=== PATIENT | female | born 1985 | race Caucasian/White ===

== ENCOUNTER → 2020-04-09 10:40 | Outpatient (BNVA) | payer MEDICAID, SELFPAY | PROVIDERS: Family Provider Nurse Practitioner; PCP Nurse Practitioner; Visit Provider Nurse Practitioner | DX: E03.9 Hypothyroidism, unspecified (principal); S93.402A Sprain of unspecified ligament of left ankle, initial encounter; Z87.891 Personal history of nicotine dependence | CPT/HCPCS: 71046; 73610; 80053; 84443 ==

== ENCOUNTER 2020-05-19 19:56 | Emergency (ER) | payer MEDICAID, SELFPAY ==
[2020-05-19 20:02] VITALS: BP 164/100; PULSE 95; RESP 18; TEMP 36.2; O2SAT 96; BMI 28.3
--- NOTE | 2020-05-19 20:11 | ED_ITS ---
HPI - Dental/Oral General: Chief complaint: Dental/Oral Stated complaint: oral pain Time Seen by Provider: 05/19/20 20:05 Source: patient Mode of arrival: ambulatory Limitations: no limitations History of Present Illness: HPI Narrative: 34-year-old female who states she has a history of poor dentition has had left lower dental pain over the last 2 to 3 days. States pain is worsened and now is a 9 out of 10. She denies any difficulty swallowing. She denies any fever. She denies any worsening or improving factors. Associated symptoms: Denies fever(s) Review of Systems Const: Denies: fever(s), chills, body aches or change in appetite Eyes: Denies: blurry vision or eye discomfort ENMT: Reports: dental pain Card: Denies: chest pain Resp: Denies: dyspnea GI: Denies: abdominal pain, nausea, vomiting or diarrhea : Denies: dysuria Musc: Denies: neck pain or back pain Skin/Breast: Denies: rash Neuro: Denies: headache(s) Psych: Denies: depression [place]/Lymph: Denies: easy bruising All/Imm: Denies: urticaria PFSH ED PFSH: Medical History (Updated 05/19/20 @ 20:10 by Sigifredo Louise MD) Adult hypothyroidism History of CVA (cerebrovascular accident) 2010 History of MRSA infection Surgical History (Updated 04/09/20 @ 10:28 by MAXIMILIANO Mock) History of hemilaminectomy History of tubal ligation Family History Other Stroke Denies family history of Bleeding disorder Social History Smoking and tobacco status: current every day smoker Second hand smoke exposure: Yes Smoking risk assessment/counseling performed?: Yes Alcohol intake: unknown Desire information about alcohol rehabilitation?: No Counseling given: No Desire information about substance/drug rehabilitation?: No Counseling given: No Adopted: No Caregiver/support person: No Lives independently: Yes Household members: children and friend(s) Housing: House Marital status: Single Number of children: 6 service: No Current occupational status: unemployed Pets and animals: Yes Pets & animals: cat(s) History of recent travel: No Current gender identity: Female Physical Exam Const: COMMON NORMALS: no acute distress, patient oriented x3 and healthy appearing HENMT: COMMON NORMALS: normocephalic and atraumatic HEAD & SCALP: normocephalic and atraumatic OTHER: Very poor dentition with multiple cavities. Inflammation to left lower molar with no abscess no trismus Eye: COMMON NORMALS: Equal, round and reactive pupils present and EOMs intact bilaterally PUPIL: Yes Equal, round and reactive pupils present Neck/C-Spine: COMMON NORMALS: full ROM and supple Chest: COMMONS NORMALS: normal inspection of the chest and normal palpation of entire chest wall Resp: COMMON NORMALS: normal respiratory effort, No retractions, No use of accessory muscles and clear to auscultation bilaterally AUSCULTATION: clear to auscultation bilaterally Cardio: COMMON NORMALS: regular rate, regular rhythm and No murmurs present (Cardio) RATE: regular rate RHYTHM: regular rhythm GI: COMMON NORMALS: Normal to inspection, nondistended, normoactive bowel sounds present, Soft to palpation, non-tender and no masses PALPATION: Yes Soft to palpation Extremity: COMMON NORMALS: normal to inspection and full ROM Neuro: COMMON NORMALS: patient oriented x3, moves all extremities and no focal motor deficits Psych: COMMON NORMALS: mental status grossly normal, Normal thought process present and cooperative THOUGHT PROCESS: Normal thought process present Skin: COMMON NORMALS: no rashes or lesions noted and no wounds GENERAL SKIN EXAM: no rashes or lesions noted Course Vital Signs: Vital signs: Vital Signs Temperature 97.2 F L 05/19/20 20:02 Pulse Rate 95 05/19/20 20:02 Respiratory Rate 18 05/19/20 20:02 Blood Pressure 164/100 05/19/20 20:02 Pulse Oximetry 96 05/19/20 20:02 MDM - Dental/Oral MDM Narrative: Medical decision making narrative: Patient presents here with dental pain. Patient has no signs of abscess or trismus. She is stable for discharge and return if worsening. Understand agree to plan. We will place her on pain meds along with antibiotics. Discharge Plan Discharge Patient Disposition: Home Clinical Impression: Dental caries Condition: Stable Prescriptions: New [place] 5-325 mg tablet 1 tab PO Q6H PRN (Reason: pain) Qty: 14 RF: 0 Zofran 4 mg tablet 4 mg PO QID PRN (Reason: nausea and vomiting) Qty: 14 RF: 0 Keflex 500 mg capsule 500 mg PO Q6H 7 Days Qty: 28 RF: 0 No Action levothyroxine 25 mcg tablet 25 mcg PO DAILY Qty: 30 RF: 5 albuterol sulfate [Proventil HFA] 90 mcg/actuation HFA aerosol inhaler 2 puff INHALATION Q6H PRN (Reason: shortness of breath or wheezing) Qty: 18 RF: 5 cephalexin 500 mg capsule 500 mg PO TID 7 Days Qty: 21 RF: 0 Discharge Orders: Discharge Order (Routine); Ordered 05/19/20 Ordered By: Sigifredo Louise Referrals: Akin Brandon, DIRECTOR OF NEUROLOGY-C [Primary Care Provider] - Discharge Diet: Advance as tolerated Discharge Activity: Resume usual activity Patient Instructions: Dental Caries (ED) Coding Level of Care Code ED Supervisor Grading for Concetta Woodruff
[2020-05-19] MEDS: HYDROcodone-acetaminophen 5-325 mg Tablet 1 TAB PO (20:21)
--- NOTE | 2020-05-20 12:48 | DCPLANNER ---
ict business development manager had message to speak with patient about a dentist. ict business development manager called patient, and told patient that the only dentist around here that takes adult medicaid is in [facility]. Patient stated that she knew the dentist, but that medicaid will not pay for dentures and she can not go to the dentist.
== END 2020-05-19 20:24 | disposition home or self-care (01) ==
PROVIDERS: Emergency Provider Emergency Medicine; PCP Nurse Practitioner
DX: K02.9 Dental caries, unspecified (principal); Z86.73 Personal history of transient ischemic attack (TIA), and cerebral infarction without residual deficits; F17.210 Nicotine dependence, cigarettes, uncomplicated
CPT/HCPCS: 12345; 99281; 99282

== ENCOUNTER 2020-06-02 20:47 | Emergency (ER) | payer MEDICAID, SELFPAY ==
--- NOTE | 2020-06-02 20:48 | XR_ITS ---
WS: [id number] XR KUB [id number] REASON FOR EXAM: constipation FINDINGS: No free air or retroperitoneal air. Bowel gas pattern demonstrates a large amount of fecal material throughout the colon and into the rec evelyn vault. No findings of bowel obstruction. No mass or significant calcification identified. XR/XR KUB [id number] IMPRESSION: Findings compatible with constipation.
[2020-06-02 20:57] VITALS: BP 164/110; PULSE 105; RESP 18; TEMP 36.8; O2SAT 96; BMI 28.3
--- NOTE | 2020-06-02 22:50 | W.ED.ABDPA2 ---
HPI - Abdominal Pain General: Chief Complaint: Abdominal Pain Stated Complaint: constipation x 5 days Time Seen by Provider: 06/02/20 22:35 Source: patient Mode of arrival: ambulatory Limitations: no limitations History of Present Illness: HPI narrative: 35-year-old female who states she has been taking [place] for dental pain has become constipated. She has not had a bowel movement 5 days. She has had abdominal cramping she rates a 3 out of 10. She has not taken any stool softeners or laxatives. She denies any worsening or improving factors. She denies any vomiting. MD elicited complaint: abdominal pain Pertinent past history: constipation Associated Symptoms: Reports constipation; Denies chills, dysuria and fever(s) Review of Systems Const: Denies: fever(s), chills, body aches or change in appetite Eyes: Denies: blurry vision or eye discomfort ENMT: Denies: throat pain or dental pain Card: Denies: chest pain Resp: Denies: dyspnea GI: Reports: abdominal pain and constipation : Denies: dysuria Musc: Denies: neck pain or back pain Skin/Breast: Denies: rash Neuro: Denies: headache(s) Psych: Denies: depression [place]/Lymph: Denies: easy bruising All/Imm: Denies: urticaria PFSH ED PFSH: Medical History (Updated 06/02/20 @ 22:51 by Sigifredo Louise MD) Adult hypothyroidism History of CVA (cerebrovascular accident) 2009 History of MRSA infection Surgical History (Updated 04/09/20 @ 10:28 by MAXIMILIANO Mock) History of hemilaminectomy History of tubal ligation Family History Other Stroke Denies family history of Bleeding disorder Social History Smoking and tobacco status: current every day smoker Second hand smoke exposure: Yes Smoking risk assessment/counseling performed?: Yes Alcohol intake: unknown Desire information about alcohol rehabilitation?: No Counseling given: No Desire information about substance/drug rehabilitation?: No Counseling given: No Adopted: No Caregiver/support person: No Lives independently: Yes Household members: children and friend(s) Housing: House Marital status: Single Number of children: 6 service: No Current occupational status: unemployed Pets and animals: Yes Pets & animals: cat(s) History of recent travel: No Current gender identity: Female Physical Exam Const: COMMON NORMALS: no acute distress, patient oriented x3 and healthy appearing HENMT: COMMON NORMALS: normocephalic and atraumatic HEAD & SCALP: normocephalic and atraumatic Eye: COMMON NORMALS: Equal, round and reactive pupils present and EOMs intact bilaterally PUPIL: Yes Equal, round and reactive pupils present Neck/C-Spine: COMMON NORMALS: full ROM and supple Chest: COMMONS NORMALS: normal inspection of the chest and normal palpation of entire chest wall Resp: COMMON NORMALS: normal respiratory effort, No retractions, No use of accessory muscles and clear to auscultation bilaterally AUSCULTATION: clear to auscultation bilaterally Cardio: COMMON NORMALS: regular rate, regular rhythm and No murmurs present (Cardio) RATE: regular rate RHYTHM: regular rhythm GI: COMMON NORMALS: Normal to inspection, nondistended, normoactive bowel sounds present, Soft to palpation, non-tender and no masses PALPATION: Yes Soft to palpation Extremity: COMMON NORMALS: normal to inspection and full ROM Neuro: COMMON NORMALS: patient oriented x3, moves all extremities and no focal motor deficits Psych: COMMON NORMALS: mental status grossly normal, Normal thought process present and cooperative THOUGHT PROCESS: Normal thought process present Skin: COMMON NORMALS: no rashes or lesions noted and no wounds GENERAL SKIN EXAM: no rashes or lesions noted Course Vital Signs: Vital signs: Vital Signs Temperature 98.3 F 06/02/20 20:57 Pulse Rate 105 H 06/02/20 20:57 Respiratory Rate 18 06/02/20 20:57 Blood Pressure 164/110 06/02/20 20:57 Pulse Oximetry 96 06/02/20 20:57 MDM - Abdominal Pain MDM Narrative: Medical decision making narrative: Patient presents here with abdominal pain from constipation with opioid use. Will give patient lactulose and MiraLAX here and discharge her on MiraLAX. She has no signs of obstruction. Patient's exam here is benign otherwise. She is stable for discharge and return if worsening. Discharge Plan Discharge Patient Disposition: Home Clinical Impression: Constipation Qualifiers: Constipation type: unspecified constipation type Qualified Code(s): K59.00 - Constipation, unspecified Condition: Stable Prescriptions: New Miralax 17 gram/dose powder 17 gm PO DAILY PRN (Reason: constipation) Qty: 119 RF: 0 No Action levothyroxine 25 mcg tablet 25 mcg PO DAILY Qty: 30 RF: 5 albuterol sulfate [Proventil HFA] 90 mcg/actuation HFA aerosol inhaler 2 puff INHALATION Q6H PRN (Reason: shortness of breath or wheezing) Qty: 18 RF: 5 cephalexin 500 mg capsule 500 mg PO TID 7 Days Qty: 21 RF: 0 [place] 5-325 mg tablet 1 tab PO Q6H PRN (Reason: pain) Qty: 14 RF: 0 Zofran 4 mg tablet 4 mg PO QID PRN (Reason: nausea and vomiting) Qty: 14 RF: 0 Discharge Orders: Discharge Order (Routine); Ordered 06/02/20 Ordered By: Sigifredo Louise Referrals: Akin Brandon, STARTING SHEET TANK OPERATOR-C [Primary Care Provider] - 1-3 days Discharge Diet: Advance as tolerated Discharge Activity: Resume usual activity Patient Instructions: Constipation (ED) Coding Level of Care Code ED Director Of Events for Concetta Woodruff
[2020-06-02] MEDS: polyethylene glycol 3350 Pkt 17 gm PO (23:11)
[2020-06-02] MEDS: lactulose oral liq 20 gm/30 mL UDC 30 GM PO (23:11)
[2020-06-02 23:13] VITALS: PULSE 72; RESP 18; O2SAT 98
== END 2020-06-02 23:14 | disposition home or self-care (01) ==
PROVIDERS: Emergency Provider Emergency Medicine; PCP Nurse Practitioner
DX: K59.00 Constipation, unspecified (principal); Z86.73 Personal history of transient ischemic attack (TIA), and cerebral infarction without residual deficits; F17.210 Nicotine dependence, cigarettes, uncomplicated
CPT/HCPCS: 12345; 74018; 99281; 99282; 99283

== ENCOUNTER 2020-06-03 01:40 | Inpatient (IN) | payer MEDICAID, SELFPAY ==
[2020-06-03] VITALS (11 sets, daily range): BP systolic 140–170; BP diastolic 90–116; PULSE 86–101; RESP 18–30; TEMP 36.2–37.1; O2SAT 91–99; BMI 28.3
--- NOTE | 2020-06-03 01:41 | CTR_ITS ---
PROCEDURE INFORMATION: Exam: CT Abdomen And Pelvis With Contrast Exam date and time: 06/03/2020 1:45 AM Age: 35 years old Clinical indication: Constipation and nausea and vomiting; Abdominal pain; Generalized; Additional info: Abd pain TECHNIQUE: Imaging protocol: Computed tomography of the abdomen and pelvis with intravenous contrast. Radiation optimization: All CT scans at this facility use at least one of these dose optimization techniques: automated exposure control; mA and/or kV adjustment per patient size (includes targeted exams where dose is matched to clinical indication); or iterative reconstruction. Contrast material: OMNI 300; Contrast volume: 95 ml; Contrast route: INTRAVENOUS (IV); COMPARISON: CT abdomen pelvis wo con [id number] 06/14/2017 1:27 PM RADIATION DOSE METRICS: Total DLP (mGy-cm): 1122.46 FINDINGS: Mediastinal space: A small hiatal hernia is present. Liver: Mild hepatic steatosis is noted. Gallbladder and bile ducts: Normal. No calcified stones. No ductal dilation. Pancreas: Normal. No ductal dilation. Spleen: Normal. No splenomegaly. Adrenals: Normal. No mass. Kidneys and ureters: Subcentimeter round hypodense lesions are present in both kidneys that are too small to characterize, but are likely benign. Stomach and bowel: Wall thickening is observed in the sigmoid colon. Several sigmoid colon diverticular are also noted. The colon is mildly distended proximal to the sigmoid colon with stool and air. The small bowel is normal in caliber. Appendix: The appendix is normal. Intraperitoneal space: Unremarkable. No free air. No significant fluid collection. Vasculature: Unremarkable. No abdominal aortic aneurysm. Lymph nodes: Unremarkable. No enlarged lymph nodes. Urinary bladder: Unremarkable as visualized. Reproductive: The uterus and ovaries appear normal. Bones/joints: Unremarkable. No acute fracture. Soft tissues: Unremarkable. CT/CT abdomen pelvis w con* [id number] IMPRESSION: 1. Sigmoid colon colitis versus diverticulitis, and associated constipation. 2. Mild hepatic steatosis. 3. Small hiatal hernia. COMMENTS: Consistent with the [employer]'s Incidental Findings Committee white paper (J Am Maria Esther Radiol 2018): Any incidental renal lesion less than 1 cm or classified as too small to characterize, or any incidental cystic renal lesion characterized as simple-appearing, is likely benign. No follow-up imaging is recommended for these lesions per consensus recommendations based on imaging criteria. Radiation Dose CTDIVOL = (mGy): DLP = 1122.46 (mGy-cm)
--- NOTE | 2020-06-03 01:44 | W.ED.ABDPA2 ---
HPI - Abdominal Pain General: Chief Complaint: Abdominal Pain Stated Complaint: puking blood Time Seen by Provider: 06/03/20 01:40 Source: patient Mode of arrival: ambulatory Limitations: no limitations History of Present Illness: HPI narrative: 35-year-old female was seen here earlier tonight for constipation. She has been on pain meds and has not a bowel movement 5 days. She was given lactulose and states she went home and started throwing up. States she threw up a small amount of blood. She she got diffuse abdominal pain she rates an 8 out of 10. She denies any worsening or improving factors. Denies any fevers. Associated Symptoms: Reports constipation, nausea and vomiting; Denies chills, dysuria and fever(s) Review of Systems Const: Denies: fever(s), chills, body aches or change in appetite Eyes: Denies: blurry vision or eye discomfort ENMT: Denies: throat pain or dental pain Card: Denies: chest pain Resp: Denies: dyspnea GI: Reports: abdominal pain, nausea, vomiting and constipation : Denies: dysuria Musc: Denies: neck pain or back pain Skin/Breast: Denies: rash Neuro: Denies: headache(s) Psych: Denies: depression [place]/Lymph: Denies: easy bruising All/Imm: Denies: urticaria PFSH ED PFSH: Medical History Adult hypothyroidism History of CVA (cerebrovascular accident) 2009 History of MRSA infection Surgical History History of hemilaminectomy History of tubal ligation Family History Other Stroke Denies family history of Bleeding disorder Social History Smoking and tobacco status: current every day smoker Second hand smoke exposure: Yes Smoking risk assessment/counseling performed?: Yes Alcohol intake: unknown Desire information about alcohol rehabilitation?: No Counseling given: No Desire information about substance/drug rehabilitation?: No Counseling given: No Adopted: No Caregiver/support person: No Lives independently: Yes Household members: children and friend(s) Housing: House Marital status: Single Number of children: 6 service: No Current occupational status: unemployed Pets and animals: Yes Pets & animals: cat(s) History of recent travel: No Current gender identity: Female Physical Exam Const: COMMON NORMALS: no acute distress, patient oriented x3 and healthy appearing HENMT: COMMON NORMALS: normocephalic and atraumatic HEAD & SCALP: normocephalic and atraumatic Eye: COMMON NORMALS: Equal, round and reactive pupils present and EOMs intact bilaterally PUPIL: Yes Equal, round and reactive pupils present Neck/C-Spine: COMMON NORMALS: full ROM and supple Chest: COMMONS NORMALS: normal inspection of the chest and normal palpation of entire chest wall Resp: COMMON NORMALS: normal respiratory effort, No retractions, No use of accessory muscles and clear to auscultation bilaterally AUSCULTATION: clear to auscultation bilaterally Cardio: COMMON NORMALS: regular rate, regular rhythm and No murmurs present (Cardio) RATE: regular rate RHYTHM: regular rhythm GI: COMMON NORMALS: Soft to palpation and no masses PALPATION: Yes Soft to palpation OTHER: distended with diffuse tenderness Extremity: COMMON NORMALS: normal to inspection and full ROM Neuro: COMMON NORMALS: patient oriented x3, moves all extremities and no focal motor deficits Psych: COMMON NORMALS: mental status grossly normal, Normal thought process present and cooperative THOUGHT PROCESS: Normal thought process present Skin: COMMON NORMALS: no rashes or lesions noted and no wounds GENERAL SKIN EXAM: no rashes or lesions noted Course Vital Signs: Vital signs: Vital Signs Temperature 97.1 F L 06/03/20 01:43 Pulse Rate 101 H 06/03/20 02:30 Respiratory Rate 30 H 06/03/20 02:30 Blood Pressure 166/116 06/03/20 02:30 Pulse Oximetry 91 06/03/20 02:30 MDM - Abdominal Pain MDM Narrative: Medical decision making narrative: Calli presents here with constipation. CT scan shows possible diverticulitis. Patient still has not had a bowel movement and has vomiting. Spoke to hospitalist will admit due to her diverticulitis and constipation. Patient has been stable down here. Lab Data: Labs: Lab Results 06/03/20 06/03/20 06/03/20 Range/Units 01:49 01:49 01:49 WBC 22.8 H (4.0-10.0) 10^3/ uL RBC 5.76 H (4.1-5.3) 10^6/u L Hgb 17.5 H (11.5-15.3) g/dL Hct 52.0 H (37.0-47.0) % MCV 90.3 (81-99) fL MCH 30.4 (28.0-34.0) pg MCHC 33.7 (30.0-36.0) g/dL RDW 13.3 (12.1-15.1) % Plt Count 398 (130-400) 10^3/c mm MPV 8.6 (7.4-10.4) fL Neut % (Auto) 60.1 % Lymph % (Auto) 30.1 % [place] % (Auto) 7.7 % Eos % (Auto) 1.1 % Baso % (Auto) 0.4 % Neut # (Auto) 13.71 H (1.8-7.7) 10^3/u L Lymph # (Auto) 6.9 H (0.8-4.8) 10^3/u L [place] # (Auto) 1.8 H (0.2-0.9) 10^3/u L Eos # (Auto) 0.2 (0.0-0.8) 10^3/u L Baso # (Auto) 0.1 (0.0-0.1) 10^3/u L Nucleated RBC % (a uto) 0 % Nucleated RBCs # 0.0 /100WBC Sodium 134 L (136-145) mmol/L Potassium 3.9 (3.5-5.1) mmol/L Chloride 100 (98-107) mmol/L Carbon Dioxide 22 (22-29) mmol/L Anion Gap 15.9 (5-19) BUN 12 (6-20) mg/dL Creatinine 0.6 (0.5-0.9) mg/dL GFR Calculation 113.1 (90-130) mL/min Glucose 112 (65-115) mg/dL Calculated Osmolal ity 279 L (285-295) mOsm/k g Calcium 9.8 (8.5-10.5) mg/dL Total Bilirubin 0.4 (0.15-1.2) mg/dL AST 17 (0-32) U/L ALT 21 (0-33) U/L Alkaline Phosphata se 85 (35-105) IU/L Total Protein 7.9 (6.6-8.7) g/dL Albumin 4.5 (3.5-5.2) g/dL Globulin 3.4 (1.3-4.6) g/dL Lipase 35 (13-60) U/L HCG, Qual Negative (Negative) Imaging Data ^: CT Abd/Pel: Radiologist's impression: [address] [address] [address] Scan Report Signed Patient: Elena Cano Unit #: [id number] : 1985 Age/Sex: 35 / F ADM Date: 06/03/20 Loc: ER Room/Bed: Attending Dr: Ordering Provider/Ordering MD: Sigifredo Louise MD Date of Service: 06/03/20 Procedure(s): CT abdomen pelvis w con* [id number] Accession Number(s): [id number] Report Number: [id number] PROCEDURE INFORMATION: Exam: CT Abdomen And Pelvis With Contrast Exam date and time: 06/03/2020 1:45 AM Age: 35 years old Clinical indication: Constipation and nausea and vomiting; Abdominal pain; Generalized; Additional info: Abd pain TECHNIQUE: Imaging protocol: Computed tomography of the abdomen and pelvis with intravenous contrast. Radiation optimization: All CT scans at this facility use at least one of these dose optimization techniques: automated exposure control; mA and/or kV adjustment per patient size (includes targeted exams where dose is matched to clinical indication); or iterative reconstruction. Contrast material: OMNI 300; Contrast volume: 95 ml; Contrast route: INTRAVENOUS (IV); COMPARISON: CT abdomen pelvis wo con [id number] 06/14/2017 1:27 PM RADIATION DOSE METRICS: Total DLP (mGy-cm): 1122.46 FINDINGS: Mediastinal space: A small hiatal hernia is present. Liver: Mild hepatic steatosis is noted. Gallbladder and bile ducts: Normal. No calcified stones. No ductal dilation. Pancreas: Normal. No ductal dilation. Spleen: Normal. No splenomegaly. Adrenals: Normal. No mass. Kidneys and ureters: Subcentimeter round hypodense lesions are present in both kidneys that are too small to characterize, but are likely benign. Stomach and bowel: Wall thickening is observed in the sigmoid colon. Several sigmoid colon diverticular are also noted. The colon is mildly distended proximal to the sigmoid colon with stool and air. The small bowel is normal in caliber. Appendix: The appendix is normal. Intraperitoneal space: Unremarkable. No free air. No significant fluid collection. Vasculature: Unremarkable. No abdominal aortic aneurysm. Lymph nodes: Unremarkable. No enlarged lymph nodes. Urinary bladder: Unremarkable as visualized. Reproductive: The uterus and ovaries appear normal. Bones/joints: Unremarkable. No acute fracture. Soft tissues: Unremarkable. CT/CT abdomen pelvis w con* [id number] IMPRESSION: 1. Sigmoid colon colitis versus diverticulitis, and associated constipation. 2. Mild hepatic steatosis. 3. Small hiatal hernia. Discharge Plan Discharge Patient Disposition: Admitted As Inpatient Clinical Impression: Diverticulitis, Constipation, Vomiting Condition: Stable Referrals: Akin Brandon DATABASE ADMINISTRATOR-C [Primary Care Provider] - Coding Level of Care Code ED Veneer Production Machine Operator for g Fwd Exam Comprehensive
[2020-06-03] MEDS: ondansetron 2 mg/ML SDV 2 mL 4 MG IVP ×4 (01:49→20:54)
[2020-06-03] MEDS: LORazepam 2 mg/mL INJ 1 mL 1 MG IVP (01:51)
[2020-06-03 01:54] LABS: Basophils # 0.1 10^3/uL (0.0-0.1); Basophils % 0.4 %; Eosinophils # 0.2 10^3/uL (0.0-0.8); Eosinophils % 1.1 %; Hemoglobin 17.5 g/dL (11.5-15.3); Lymphocytes # 6.9 10^3/uL (0.8-4.8); Lymphocytes % 30.1 %; Mean Corpuscular HGB Conc 33.7 g/dL (30.0-36.0); Mean Corpuscular Hemoglobin 30.4 pg (28.0-34.0); Mean Corpuscular Volume 90.3 fL (81-99); Mean Platelet Volume 8.6 fL (7.4-10.4); Monocytes # 1.8 10^3/uL (0.2-0.9); Monocytes % 7.7 %; Neutrophils # 13.71 10^3/uL (1.8-7.7); Neutrophils % 60.1 %; Nucleated Red Blood Cells % 0 %; Platelet Count 398 10^3/cmm (130-400); Red Blood Count 5.76 10^6/uL (4.1-5.3); Red Cell Distribution Width 13.3 % (12.1-15.1); White Blood Count 22.8 10^3/uL (4.0-10.0)
[2020-06-03] MEDS: iohexol 300 mg/mL 100 mL Btl IV (02:12)
[2020-06-03 02:13] LABS: HCG, Serum Qual Negative (Negative)
[2020-06-03 02:19] LABS: Alanine Aminotransferase 21 U/L (0-33); Albumin Level 4.5 g/dL (3.5-5.2); Alkaline Phosphatase 85 IU/L (35-105); Anion Gap 15.9 (5-19); Aspartate Amino Transferase 17 U/L (0-32); Blood Urea Nitrogen 12 mg/dL (6-20); Calcium 9.8 mg/dL (8.5-10.5); Carbon Dioxide 22 mmol/L (22-29); Chloride 100 mmol/L (98-107); Globulin 3.4 g/dL (1.3-4.6); Glomerular Filtration Rate 113.1 mL/min (90-130); Glucose 112 mg/dL (65-115); Lipase 35 U/L (13-60); Osmolality Calculated 279 mOsm/kg (285-295); Potassium 3.9 mmol/L (3.5-5.1); Sodium 134 mmol/L (136-145); Total Bilirubin 0.4 mg/dL (0.15-1.2); Total Protein 7.9 g/dL (6.6-8.7)
[2020-06-03] MEDS: metoclopramide 5 mg/mL SDV 2 mL 10 MG IVP (02:22)
[2020-06-03] MEDS: diphenhydrAMINE 50 mg/mL SDV 1mL IVP (02:24)
[2020-06-03] MEDS: sodium chloride 0.9% 1,000 ML 999 ML IV (02:27)
[2020-06-03] MEDS: levofloxacin-dextrose 5 % 750 MG/150 ML PREMIX 100 MG IV (03:32)
--- NOTE | 2020-06-03 03:50 | P.HP_ITS ---
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 Patient states that she has chronic constipation, she has a bowel movement every few days, but for the last 5 days she has has not had a bowel movement. Starting today she had worsening abdominal pain, abdominal distention, developed violent retching, nausea, vomiting, with minimal hematemesis. Denies fevers, chills, recent travel, exposure to COVID-19. Denies a history of diverticulitis. Denies being , had a thermal ablation 8 years ago, has not had a period since then. Denies IV drug use, yari es marijuana use. Only medication she uses is levothyroxine for hypothyroidism. She did admit to using 2 tablets of ibuprofen for pain. Denies alcohol use. Is a smoker. Abdominal pain is diffuse, is tender all over, prefers to lie on her side due to abdominal pain. Denies any dysuria. Denies any hematuria. Denies any flank pain. Denies any lower pelvic pain. Has not been sexually active in the last 8 years. Denies any history of bloody or black stools. Denies any weight loss. Denies any personal or family history of colon cancer. Denies any personal family history of ulcerative colitis or Crohn's disease. Review of Systems Const: Denies: fever(s), chills, fatigue or malaise Eyes: Denies: change in vision or blurry vision ENMT: Denies: nasal congestion Resp: Denies: dyspnea, productive cough, non-productive cough or wheezing GI: Reports: abdominal pain, nausea, vomiting, hematemesis and constipation; Denies: coffee ground emesis, diarrhea, hematochezia or melena : Denies: flank pain, dysuria or urinary frequency Musc: Denies: neck pain or back pain Skin/Breast: Denies: rash Neuro: Denies: headache(s), dizziness or vertigo Psych: Denies: anxiety or depression Endo: Denies: polyuria or polydipsia Medications/Allergies Home Medications Medication Instructions Recorded Confirmed Last Taken Type cephalexin 500 mg capsule 500 mg PO TID 7 Days #21 cap 04/04/20 04/09/20 Unknown Rx albuterol sulfate 90 mcg/actuation 2 puff INHALATION Q6H PRN #18 gm 04/09/20 04/09/20 Unknown Rx aerosol inhaler levothyroxine 25 mcg tablet 25 mcg PO DAILY #30 tab 04/09/20 04/09/20 Unknown Rx hydrocodone-acetaminophen [[place]] 1 tab PO Q6H PRN #14 tab 05/19/20 Unknown Rx ondansetron HCl [Zofran] 4 mg PO QID PRN #14 tab 05/19/20 Unknown Rx polyethylene glycol 3350 [Miralax] 17 gm PO DAILY PRN #119 gm 06/02/20 Unknown Rx Allergies Allergy/AdvReac Type Severity Reaction Status Date / Time chlorpromazine Allergy Unknown Unknown Verified 11/20/19 12:10 [From Thorazine] metronidazole [From Flagyl] Allergy Unknown hives Verified 11/20/19 12:10 Sulfa (Sulfonamide Allergy Unknown Verified 05/19/20 20:01 Antibiotics) sulfa drugs Allergy Unknown Unknown Uncoded 11/20/19 12:08 PFSH Acute PFSH: Medical History Adult hypothyroidism History of CVA (cerebrovascular accident) 2010 History of MRSA infection Surgical History History of hemilaminectomy History of tubal ligation Family History Other Stroke Denies family history of Bleeding disorder Social History Smoking and tobacco status: current every day smoker Second hand smoke exposure: Yes Smoking risk assessment/counseling performed?: Yes Alcohol intake: unknown Desire information about alcohol rehabilitation?: No Counseling given: No Desire information about substance/drug rehabilitation?: No Counseling given: No Adopted: No Caregiver/support person: No Lives independently: Yes Household members: children and friend(s) Housing: House Marital status: Single Number of children: 6 service: No Current occupational status: unemployed Pets and animals: Yes Pets & animals: cat(s) History of recent travel: No Current gender identity: Female Vitals/I&O/Wt Last Vital Signs Temp 97.1 F L 06/03/20 01:43 Pulse 86 06/03/20 03:29 Resp 18 06/03/20 03:29 BP 166/116 06/03/20 02:30 Pulse Ox 99 06/03/20 03:29 06/02/20 06/02/20 06/03/20 14:59 22:59 06:59 Intake Total 1000 / 1000 Balance 1000 / 1000 Weight last 48 hrs Weight 72.575 kg Physical Exam Const: COMMON NORMALS: no acute distress and patient oriented x3 GENERAL APPEARANCE: cooperative and comfortable HENMT: COMMON NORMALS: normocephalic HEAD & SCALP: normocephalic Eye: OTHER: Has mucoid eye discharge Neck/C-Spine: COMMON NORMALS: full ROM, no lymphadenopathy, no JVD and Thyroid normal THYROID: Thyroid normal Lymph: LYMPHATIC: no lymphadenopathy noted Resp: COMMON NORMALS: normal respiratory effort, No retractions, No use of accessory muscles and clear to auscultation bilaterally AUSCULTATION: clear to auscultation bilaterally Cardio: COMMON NORMALS: no JVD, regular rate, regular rhythm, S1 normal heart sound present, S2 normal heart sound present, No gallops present (Cardio), No clicks present (Cardio) and No murmurs present (Cardio) RATE: regular rate RHYTHM: regular rhythm HEART SOUNDS: S1 normal heart sound present and S2 normal heart sound present GI: COMMON NORMALS: Normal to inspection, nondistended, normoactive bowel sounds present, Soft to palpation, non-tender and No hepatosplenomegaly present INSPECTION: Yes normal to inspection AUSCULTATION: Yes Hypoactive bowel sounds present PALPATION: Yes Tenderness to palpation present (GI) Details: LLQ, RLQ, LUQ and RUQ, No Guarding due to palpation present (GI), No Rigid due to palpation and No Ascites present PERCUSSION: tympanic to percussion Extremity: COMMON NORMALS: normal to inspection, full ROM and no pedal edema Neuro: COMMON NORMALS: patient oriented x3, CN's II-XII intact bilaterally, moves all extremities and no focal motor deficits Psych: COMMON NORMALS: mental status grossly normal, Normal thought process present and cooperative THOUGHT PROCESS: Normal thought process present Data : 06/03/20 01:49 06/03/20 01:49 A&P Assessment and plan (1) Diverticulitis: -CT scan of the abdomen and pelvis shows sigmoid colon colitis versus diverticulitis and associated constipation -WBC 22.8, neutrophilic and lymphocytic -Has severe abdominal pain, abdominal distention, nausea, vomiting, minimal hematemesis Plan: -Gentle IV hydration -Start Zosyn for antibiotic coverage -Stool studies, inflammatory markers -Morphine for pain -Zofran, Reglan, promethazine, Ativan for nausea -Monitor clinical status closely Status: Acute (2) Hematemesis: -Possibly secondary to Eloina-Domínguez tear, severe nausea and retching -Zofran, Reglan, promethazine, Ativan for nausea -Currently n.p.o. -Monitor hemoglobin Status: Acute (3) Constipation: -Start Colace, MiraLAX, lactulose for constipation -Add asthma as needed Status: Acute (4) Adult hypothyroidism: -Continue levothyroxine Status: Chronic (5) Conjunctivitis: - erythromycin Status: Acute (6) History of CVA (cerebrovascular accident): Status: Acute (7) History of pulmonary embolism: Status: Acute Additional A&P Information full code lovenox for dvt prophylaxis Attestations Medical Necessity Statement*: patient requires hospitalization, >2 midnight for diverticlitis, hematemsis Coding Level of Care Code Acute Human Resources Benefits Administrator for [facility] Diagnoses Diverticulitis K57.92 Hematemesis K92.0 Constipation K59.00 Adult hypothyroidism E03.9 Conjunctivitis H10.9 History of CVA (cerebrovascular accident) Z86.73 History of pulmonary embolism Z86.711
[2020-06-03] MEDS: lactated ringers 1,000 ML 100 ML IV ×2 (04:11→13:41)
[2020-06-03] MEDS: enoxaparin 40 mg/0.4 mL Syringe SUBCUT (04:11)
[2020-06-03 05:23] LABS: Amphetamines Screen Urine Negative (Negative); Barbiturates Screen Urine Negative (Negative); Benzodiazepines Screen Urine Positive (Negative); Cocaine Screen Urine Negative (Negative); Opiate Screen Urine Negative (Negative); PCP Screen Urine Negative (Negative); THC Screen Urine Negative (Negative)
[2020-06-03 05:26] LABS: Lactic Sepsis W/Reflex 1.4 mmol/L (0.5-2.2)
[2020-06-03 05:30] LABS: Estmated Average Glucose 105; Hemoglobin A1C 5.3 % (4.0-6.0)
[2020-06-03 05:38] LABS: Procalcitonin 0.03 ng/mL (0-0.5)
[2020-06-03 05:46] LABS: Erythrocyte Sedimentation Rate 12 mm/hr (0-15)
[2020-06-03 05:49] LABS: Alanine Aminotransferase 20 U/L (0-33); Alkaline Phosphatase 97 IU/L (35-105); Aspartate Amino Transferase 17 U/L (0-32); C Reactive Protein 16.8 mg/L (0.0-4.9); Magnesium 2.4 mg/dL (1.7-2.3); Phosphorus 3.9 mg/dL (2.5-4.5); Total Bilirubin 0.5 mg/dL (0.15-1.2)
[2020-06-03 05:55] LABS: Alcohol Level < 10 mg/dL (0-10)
[2020-06-03] MEDS: LORazepam 2 mg/mL INJ 1 mL 0.5 MG IVP (05:57)
[2020-06-03] MEDS: promethazine 25 mg/mL SDV 1 mL 12.5 MG IM (05:57)
[2020-06-03 07:37] LABS: Hematocrit 50.5 % (37.0-47.0); Hemoglobin 16.9 g/dL (11.5-15.3)
[2020-06-03] MEDS: polyethylene glycol 3350 Pkt 17 gm PO (08:42)
[2020-06-03] MEDS: piperacillin-tazobactam 3.375 GM in sodium chloride 0.9% (plus) 50 ML IV ×3 (08:42→23:29)
[2020-06-03] MEDS: lactulose oral liq 20 gm/30 mL UDC 10 GM PO (08:43)
[2020-06-03] MEDS: docusate sodium 100 mg Capsule PO ×2 (08:44→17:59)
[2020-06-03] MEDS: levothyroxine 25 mcg Tablet PO (08:44)
--- NOTE | 2020-06-03 09:00 | PC.CHAP ---
Pastoral Care Encounter/Spiritual Assessment Type of Contact [] Declined joiner apprentice visit [] Patient/Family/Request visit [] Outpatient visit [] Follow-up visit [] Physician referral [] Code/Alert [] Routine visit [] Staff referral [] Actively dying [] Patient sleeping [] Family support [] [] Out of room [] Palliative care [] [] Receiving care in room [] Pre-surgical visit [] Trauma [] Long length of stay [] ICU visit [] Other: Relational/Emotional Strength [] Patient feels connected with others/family/visitors/staff [] Distress [] Loneliness/isolation [] Abandonment Spirituality of Patient [] Person of Becki [] Attends Episcopal of their Becki [] Believes in Prayer [] Reads Bible or Evangelical materials [] There are Spiritual issues to be addressed Continuous Wave Operator Interventions [] Prayer [] Active listening [] Non-anxious presence [] Spiritual/emotional support [] Crisis/trauma care [] Spiritual counseling [] Bereavement support [] Provided bereavement packet [] Provided Bible/devotional materials [] Provided toy/stuffed animal, coloring book to patient or family member [] Provided Communion [] Anointing/[place] [] Salvation [] Completed spiritual assessment [] Other: Impact on Illness or Injury [] Angry [] Fearful [] Anxious [] Often cries [] Exhaustion [] Unable to work [] Unable to attend anabaptist [] Unable to walk/stand [] Unable to read [] Unable to drive [] Unable to eat/drink [] Unable to sleep [] Unable to be with family [] Patient intubated [] Other: Summary Time spent with patient
[2020-06-03] MEDS: erythromycin Op Oint 3.5 gm Tube 1 APPLIC EYE-BOTH ×4 (09:26→20:37)
--- NOTE | 2020-06-03 09:47 | P.PN_ITS ---
Subjective Subjective: Interval history: Patient still complaining of generalized abdominal pain with nausea. Not in acute distress. Vitals and labs have been reviewed Medications: Reviewed: Yes Vitals/I&O/Wt Last Vital Signs Temp 97.5 F L 06/03/20 08:00 Pulse 93 06/03/20 08:00 Resp 18 06/03/20 08:00 BP 140/90 06/03/20 08:00 Pulse Ox 95 06/03/20 08:00 06/02/20 06/03/20 06/03/20 22:59 06:59 14:59 Intake Total 1000 / 1000 120 / 120 Output Total 100 / 100 Balance 900 / 900 120 / 120 Weight last 48 hrs Weight 72.575 kg Physical Exam Const: COMMON NORMALS: patient oriented x3 HENMT: COMMON NORMALS: normocephalic, atraumatic, hearing grossly normal bilaterally and external ears normal HEAD & SCALP: normocephalic and atraumatic EXTERNAL EAR: Yes external ears normal Eye: COMMON NORMALS: no scleral icterus GENERAL EYE: appearance normal, both eyes and all related structures Chest: COMMONS NORMALS: normal inspection of the chest and normal palpation of entire chest wall CHEST: Yes Symmetrical chest wall rise Resp: COMMON NORMALS: normal respiratory effort, No retractions, No use of accessory muscles and clear to auscultation bilaterally EFFORT & INSPECTION: Yes symmetric chest movement AUSCULTATION: clear to auscultation bilaterally Cardio: COMMON NORMALS: regular rate, regular rhythm, S1 normal heart sound present, S2 normal heart sound present, No gallops present (Cardio), No murmurs present (Cardio), No rub (Cardio) and Peripheral pulses 2+ throughout RATE: regular rate RHYTHM: regular rhythm HEART SOUNDS: S1 normal heart sound present and S2 normal heart sound present PERIPHERAL PULSES: Peripheral pulses 2+ throughout GI: COMMON NORMALS: Normal to inspection, nondistended, normoactive bowel sounds present and no masses AUSCULTATION: Yes normoactive bowel sounds PALPATION: Yes Other GI palpation findings present (Generalized abdominal tenderness present, no guarding no rigidity, bowel sounds normoactive) RECTAL EXAM: deferred Extremity: COMMON NORMALS: no clubbing, cyanosis or edema and no pedal edema Neuro: COMMON NORMALS: patient oriented x3 Data : 06/03/20 07:29 06/03/20 01:49 A&P Assessment and plan (1) Diverticulitis: -CT scan of the abdomen and pelvis shows sigmoid colon colitis versus diverticulitis and associated constipation -WBC 22.8 -Has severe abdominal pain, abdominal distention, nausea, vomiting, minimal hem atemesis Plan: -NPO -Continue IV hydration -Continue Zosyn for antibiotic coverage -Morphine for pain -Zofran, Reglan, promethazine, for nausea Status: Acute (2) Hematemesis: -Currently H/H is stable ,no active hematemesis going on.No need for gastrograffin study. -Zofran, Reglan, promethazine, Ativan for nausea -Currently n.p.o. -Monitor hemoglobin Status: Acute (3) Conjunctivitis: - erythromycin Status: Acute (4) Constipation: -Start Colace, MiraLAX, lactulose for constipation -Add asthma as needed Status: Acute (5) Adult hypothyroidism: -Continue levothyroxine 25 mcg oral daily Status: Chronic (6) History of CVA (cerebrovascular accident): Will start her on aspirin.Once stable from current condition. Status: Acute (7) History of pulmonary embolism: Status: Acute Additional A&P Information Code Status: full code lovenox for dvt prophylaxis Attestations Medical Necessity Statement*: She needs to be in hospital for the management o f Ac Diverticulitis. Coding Level of Care Code Acute Project Manager/Design Manager for [employer] Diagnoses Diverticulitis K57.92 Hematemesis K92.0 Conjunctivitis H10.9 Constipation K59.00 Adult hypothyroidism E03.9 History of CVA (cerebrovascular accident) Z86.73 History of pulmonary embolism Z86.711
[2020-06-03] MEDS: morphine 4 mg/mL SDV 1 mL 2 MG IVP ×3 (10:52→20:54)
[2020-06-03] MEDS: ketorolac 30 mg/mL INJ 15 MG IVP (13:37)
[2020-06-03 21:01] LABS: Glucose Point of Care 116 mg/dL (70-110)
[2020-06-04] VITALS (11 sets, daily range): BP systolic 117–158; BP diastolic 74–93; PULSE 63–104; RESP 14–20; TEMP 36.8–37.2; O2SAT 93–97
[2020-06-04] MEDS: metoclopramide 5 mg/mL SDV 2 mL IVP (00:05)
[2020-06-04] MEDS: lactated ringers 1,000 ML 100 ML IV ×3 (01:30→22:04)
[2020-06-04] MEDS: morphine 4 mg/mL SDV 1 mL 2 MG IVP ×5 (02:22→23:40)
[2020-06-04] MEDS: enoxaparin 40 mg/0.4 mL Syringe SUBCUT (04:39)
[2020-06-04] MEDS: piperacillin-tazobactam 3.375 GM in sodium chloride 0.9% (plus) 50 ML IV ×3 (07:53→23:37)
[2020-06-04] MEDS: docusate sodium 100 mg Capsule PO (08:04)
[2020-06-04] MEDS: levothyroxine 25 mcg Tablet PO (08:04)
--- NOTE | 2020-06-04 09:28 | P.PN_ITS ---
Subjective Subjective: Interval history: She is no longer complaining of abdominal pain, nausea vomiting, she is tolerating feeds well. She is complaining of multiple episodes of diarrhea. Stool C. difficile study came positive. Started her on C. difficile treatment. Medications: Reviewed: Yes Vitals/I&O/Wt Last Vital Signs Temp 98.6 F 06/04/20 08:00 Pulse 104 H 06/04/20 08:00 Resp 16 06/04/20 08:00 BP 117/74 06/04/20 08:00 Pulse Ox 94 06/04/20 08:00 06/03/20 06/04/20 06/04/20 22:59 06:59 14:59 Intake Total 50 / 1170 1050 / 2220 Output Total 150 / 150 400 / 550 Balance -100 / 1020 650 / 1670 Weight last 48 hrs Weight 72.575 kg Physical Exam Const: COMMON NORMALS: patient oriented x3 HENMT: COMMON NORMALS: normocephalic, atraumatic, hearing grossly normal bilaterally and external ears normal HEAD & SCALP: normocephalic and atraumatic EXTERNAL EAR: Yes external ears normal Eye: COMMON NORMALS: no scleral icterus GENERAL EYE: appearance normal, both eyes and all related structures Chest: COMMONS NORMALS: normal inspection of the chest and normal palpation of entire chest wall CHEST: Yes Symmetrical chest wall rise Resp: COMMON NORMALS: normal respiratory effort, No retractions, No use of accessory muscles and clear to auscultation bilaterally EFFORT & INSPECTION: Yes symmetric chest movement AUSCULTATION: clear to auscultation bilaterally Cardio: COMMON NORMALS: regular rate, regular rhythm, S1 normal heart sound present, S2 normal heart sound present, No gallops present (Cardio), No murmurs present (Cardio), No rub (Cardio) and Peripheral pulses 2+ throughout RATE: regular rate RHYTHM: regular rhythm HEART SOUNDS: S1 normal heart sound p resent and S2 normal heart sound present PERIPHERAL PULSES: Peripheral pulses 2+ throughout GI: COMMON NORMALS: Normal to inspection, nondistended, normoactive bowel sounds present, Soft to palpation, non-tender, No hepatosplenomegaly present and no masses AUSCULTATION: Yes normoactive bowel sounds PALPATION: Yes Soft to palpation and Yes No hepatosplenomegaly present RECTAL EXAM: deferred Extremity: COMMON NORMALS: no clubbing, cyanosis or edema and no pedal edema Neuro: COMMON NORMALS: patient oriented x3 Data : 06/04/20 10:00 06/04/20 10:00 A&P Assessment and plan (1) Diverticulitis: -Improving -CT scan of the abdomen and pelvis shows sigmoid colon colitis versus diverticulitis and associated constipation -WBC is trending down -No abdominal pain, abdominal distention, nausea, vomiting, minimal hematemesis Plan: -Continue with diet -Stopped Zosyn -Morphine for pain -Zofran, Reglan, promethazine, for nausea Status: Acute (2) C. difficile diarrhea: Stool C.Diff study is positive ( C. difficile toxin B gene DNA detected ) Continue vancoomycin 125 mg po q6 h daily for 10 days Status: Acute (3) Hematemesis: -Currently H/H is stable ,no active hematemesis going on.No need for frieda rograffin study. -Zofran, Reglan, promethazine, Ativan for nausea -Currently n.p.o. -Monitor hemoglobin Status: Acute (4) Conjunctivitis: - erythromycin Status: Acute (5) Hypokalemia: Will replace with oral Kcl 20 meq one time dose Status: Acute (6) Adult hypothyroidism: -Continue levothyroxine 25 mcg oral daily Status: Chronic (7) History of CVA (cerebrovascular accident): Will start her on aspirin.Once stable from current condition. Status: Acute (8) History of pulmonary embolism: Status: Acute Additional A&P Information Code Status: full code lovenox for dvt prophylaxis Attestations Medical Necessity Statement*: Patient is to be in hospital for management of diverticulitis and C. difficile infection. Coding Level of Care Code Acute Reading Instructor for [facility] Fwd Diagnoses Diverticulitis K57.92 C. difficile diarrhea A04.72 Hematemesis K92.0 Conjunctivitis H10.9 Hypokalemia E87.6 Adult hypothyroidism E03.9 History of CVA (cerebrovascular accident) Z86.73 History of pulmonary embolism Z86.711
--- NOTE | 2020-06-04 09:40 | PC.RESP ---
SMOKING CESSATION INFORMATION SENT TO PATIENT.
[2020-06-04 10:20] LABS: Basophils % 0.2 %; Eosinophils % 0.2 %; Hematocrit 42.5 % (37.0-47.0); Hemoglobin 14.3 g/dL (11.5-15.3); Lymphocytes % 18.2 %; Mean Corpuscular HGB Conc 33.6 g/dL (30.0-36.0); Mean Corpuscular Hemoglobin 30.2 pg (28.0-34.0); Mean Corpuscular Volume 89.7 fL (81-99); Mean Platelet Volume 8.6 fL (7.4-10.4); Monocytes # 1.4 10^3/uL (0.2-0.9); Monocytes % 8.5 %; Neutrophils % 72.5 %; Nucleated Red Blood Cells % 0 %; Platelet Count 269 10^3/cmm (130-400); Red Blood Count 4.74 10^6/uL (4.1-5.3); Red Cell Distribution Width 13.2 % (12.1-15.1); White Blood Count 16.3 10^3/uL (4.0-10.0)
[2020-06-04 10:36] LABS: Anion Gap 13.3 (5-19); Blood Urea Nitrogen 11 mg/dL (6-20); Calcium 8.4 mg/dL (8.5-10.5); Carbon Dioxide 23 mmol/L (22-29); Chloride 103 mmol/L (98-107); Creatinine Clr Calc Pharmacy 148.4874; Glomerular Filtration Rate 139.6 mL/min (90-130); Glucose 99 mg/dL (65-115); Osmolality Calculated 281 mOsm/kg (285-295); Potassium 3.3 mmol/L (3.5-5.1); Sodium 136 mmol/L (136-145)
[2020-06-04] MEDS: erythromycin Op Oint 3.5 gm Tube 1 APPLIC EYE-BOTH ×3 (11:18→22:06)
--- NOTE | 2020-06-04 17:59 | PC.NURSE ---
pt diet advanced today to clear liquids. pt tolerated well. pt advanced to reg. diet for supper. pt has had multiple loose stools and moderate pain. pt states overall feeling much better today. pt was up and showered today.
[2020-06-05] MEDS: enoxaparin 40 mg/0.4 mL Syringe SUBCUT (03:02)
[2020-06-05 03:50] VITALS: BP 114/71; PULSE 83; RESP 16; TEMP 36.8; O2SAT 94
[2020-06-05 07:38] VITALS: BP 127/81; PULSE 85; RESP 16; TEMP 36.9; O2SAT 96
[2020-06-05] MEDS: lactated ringers 1,000 ML 100 ML IV (09:06)
[2020-06-05] MEDS: piperacillin-tazobactam 3.375 GM in sodium chloride 0.9% (plus) 50 ML IV (09:08)
[2020-06-05] MEDS: levothyroxine 25 mcg Tablet PO (09:09)
[2020-06-05] MEDS: erythromycin Op Oint 3.5 gm Tube 1 APPLIC EYE-BOTH (09:10)
--- NOTE | 2020-06-05 11:10 | P.DS_ITS ---
Discharge Providers Date of Admission: 06/03/20 03:02 Date of Discharge: June 05, 2020 Attending Provider at Admission: Salo Rucker MD Attending Provider at Discharge: Ravi Guerrier MD Primary Care Provider: MAXIMILIANO Mock Diagnoses at Discharge Discharge Diagnosis (1) Diverticulitis: Status: Resolved (2) C. 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 At the time of discharge she had no abdominal pain, nausea, vomitting,diarrhea. She responded well to above medical magement and was discharged in stable condition. Physical Exam Const: COMMON NORMALS: patient oriented x3 HENMT: COMMON NORMALS: normocephalic, atraumatic, hearing grossly normal bilaterally and external ears normal HEAD & SCALP: normocephalic and atraumatic EXTERNAL EAR: Yes external ears normal Eye: COMMON NORMALS: no scleral icterus GENERAL EYE: appearance normal, both eyes and all related structures Chest: COMMONS NORMALS: normal inspection of the chest and normal palpation of entire chest wall CHEST: Yes Symmetrical chest wall rise Resp: COMMON NORMALS: normal respiratory effort, No retractions, No use of accessory muscles and clear to auscultation bilaterally EFFORT & INSPECTION: Yes symmetric chest movement AUSCULTATION: clear to auscultation bilaterally Cardio: COMMON NORMALS: regular rate, regular rhythm, S1 normal heart sound present, S2 normal heart sound present, No gallops present (Cardio), No murmurs present (Cardio), No rub (Cardio) and Peripheral pulses 2+ throughout RATE: regular rate RHYTHM: regular rhythm HEART SOUNDS: S1 normal heart sound present and S2 normal heart sound present PERIPHERAL PULSES: Peripheral pulses 2+ throughout GI: COMMON NORMALS: Normal to inspection, nondistended, normoactive bowel sounds present, Soft to palpation, non-tender, No hepatosplenomegaly present and no masses AUSCULTATION: Yes normoactive bowel sounds PALPATION: Yes Soft to palpation and Yes No hepatosplenomegaly present RECTAL EXAM: deferred : COMMON NORMALS: Yes no CVA tenderness BLADDER/KIDNEY EXAM: Yes no CVA tenderness Back/Pelvis: COMMON NORMALS: no CVA tenderness Extremity: COMMON NORMALS: no clubbing, cyanosis or edema and no pedal edema Neuro: COMMON NORMALS: patient oriented x3 Discharge Data Data Completed and Pending: Completed Studies During Hospitalization Category Date Time Status CT abdomen pelvis w con* [id number] Urge nt Cat Scan 06/03/20 01:41 Completed Pending at discharge Category Date Time Status Clostridioides Di fficile PCR Routin e Lab 06/03/20 04:09 Results Enteric Bacterial Panel by PCR Rout ine Lab 06/03/20 04:09 Results Enteric Parasite Panel by PCR Sheni ne Lab 06/03/20 04:09 Results Immunochemical Fe christina OCB Routine Lab 06/03/20 04:09 Results Lactoferrin Sheni ne Lab 06/03/20 04:09 Results Vitals: Last Vital Signs Temp 98.4 F 06/05/20 07:38 Pulse 85 06/05/20 07:38 Resp 16 06/05/20 07:38 BP 127/81 06/05/20 07:38 Pulse Ox 96 06/05/20 07:38 Discharge Plan Discharge Patient Disposition: Home Condition: Stable Prescriptions: New vancomycin 125 mg capsule 125 mg PO Q6H Qty: 40 RF: 0 Continued levothyroxine 25 mcg tablet 25 mcg PO DAILY Qty: 30 RF: 5 albuterol sulfate [Proventil HFA] 90 mcg/actuation HFA aerosol inhaler 2 puff INHALATION Q6H PRN (Reason: shortness of breath or wheezing) Qty: 18 RF: 5 hydrocodone-acetaminophen [[place]] 5-325 mg tablet 1 tab PO Q6H PRN (Reason: pain) Qty: 14 RF: 0 ondansetron HCl [Zofran] 4 mg tablet 4 mg PO QID PRN (Reason: nausea and vomiting) Qty: 14 RF: 0 Discontinued polyethylene glycol 3350 [Miralax] 17 gram/dose powder 17 gm PO DAILY PRN (Reason: constipation) Qty: 119 RF: 0 Discharge Orders: Discharge Order (Routine); Ordered 06/05/20 Ordered By: Ravi Guerrier Referrals: Akin Brandon FNP-C [Primary Care Provider] - 06/12/20 9:20 am Discharge Diet: Usual diet Discharge Activity: Resume usual activity Patient Instructions: Clostridium Difficile, Vancomycin (By mouth) Discharge Date/Time: 06/05/20 12:07 Discharge Attestations Time Spent in Discharge Care*: greater than 30 min Specific Discharge Activities: Specific discharge activities: educating patient, educating and/or supporting family/caregiver, discussing with pcp/other providers, discussing with correctional case records supervisor/social workers/dc planners, documenting/other paperwork and evaluating patient/reviewing data Status at Discharge: Cognitive status at discharge: cognitively intact , Behavioral status at discharge: cooperative , Functional status at discharge: independent ambulation Quality Metrics Clinical Quality Measures During this hospital stay, did patient experience: None Coding Level of Care Code Acute Section Leader And Machine Setter for [facility] Fwd Diagnoses Diverticulitis K57.92 C. difficile diarrhea A04.72 Hematemesis K92.0 Conjunctivitis H10.9 Hypokalemia E87.6 Adult hypothyroidism E03.9 History of CVA (cerebrovascular accident) Z86.73 History of pulmonary embolism Z86.711
[2020-06-05 12:07] VITALS: BP 127/81; PULSE 85; RESP 16; TEMP 36.9; O2SAT 96
== END 2020-06-05 12:07 | disposition home or self-care (01) | DRG 392 ==
LOC: ER 03:02 → MEDSURG 03:19
PROVIDERS: Emergency Medicine; Admitting Provider Family Medicine; PCP Nurse Practitioner; Visit Provider Internal Medicine
DX: K57.32 Diverticulitis of large intestine without perforation or abscess without bleeding (principal); K92.0 Hematemesis; A04.72 Enterocolitis due to Clostridium difficile, not specified as recurrent; E03.9 Hypothyroidism, unspecified; K59.09 Other constipation; Z86.73 Personal history of transient ischemic attack (TIA), and cerebral infarction without residual deficits; Z86.711 Personal history of pulmonary embolism; F17.210 Nicotine dependence, cigarettes, uncomplicated; Z86.14 Personal history of Methicillin resistant Staphylococcus aureus infection; H10.9 Unspecified conjunctivitis; E87.6 Hypokalemia; Z79.891 Long term (current) use of opiate analgesic
CPT/HCPCS: 12345; 36415; 36416; 74177; 80048; 80053; 80076; 80306; 80307; 82274; 82962; 83036; 83605; 83630; 83690; 83735; 84100; 84145; 84703; 85014; 85018; 85025; 85651; 86140; 87493; 87506; 96372; 96375; 99283; J1200; J1650; J1885; J1956; J2060; J2270; J2405; J2543; J2550; J2765; J3370; J7030; Q9967

== ENCOUNTER → 2020-07-23 09:46 | Outpatient (BNVA) | payer MEDICAID, SELFPAY | PROVIDERS: PCP Family Medicine Adult Medicine; Visit Provider Family Medicine Adult Medicine | DX: Z20.828 Contact with and (suspected) exposure to other viral communicable diseases (principal); E87.6 Hypokalemia; K58.9 Irritable bowel syndrome, unspecified; R10.9 Unspecified abdominal pain | CPT/HCPCS: 80048; 85025; 87635 ==

== ENCOUNTER 2020-07-30 05:47 | Day surgery (SDC) | payer MEDICAID, SELFPAY ==
[2020-07-28 09:13] VITALS: BMI 29.7
[2020-07-30 06:12] VITALS: BP 137/102; PULSE 100; RESP 16; TEMP 36.3; O2SAT 98
[2020-07-30] MEDS: sodium chloride 0.9% 1,000 ML 30 ML IV (06:23)
--- NOTE | 2020-07-30 06:33 | ANES.PREANE2 ---
Pre-Anesthetic Assessment Pre-Anesthetic Assessment: Height/Weight: Height 1.6 m Weight 76.204 kg Temp Pulse Resp BP Pulse Ox 97.3 F L 100 16 137/102 98 07/30/20 06:12 07/30/20 06:12 07/30/20 06:12 07/30/20 06:12 07/30/20 06:12 Preop Diagnosis: Hematemesis and colitis Proposed Procedure: Operation Date: 07/30/20 07:00 Proposed Procedures p EGD 92851/ COLONOSCOPY 26424 HEMATEMESIS K92.0/ COLITIS K52.9(Not Applicable) - Christiano Saavedra MD s EGD 60952/ COLONOSCOPY 47303(Not Applicable) - Christiano Saavedra MD Familial anesthetic complications: None Was Beta Narinder taken within 24 hours: N/A Last intake: Intake Last Liquid Date 07/29/20 Last Liquid Time 22:00 Last Solid Date 07/28/20 Last Solid Time 23:00 Social: Social History: No alcohol Comment: Quit smoking 2 weeks ago Exam: Pre-Anes Outpt Exam: alert, oriented x 3, clear to auscultation bilaterally and regular rate & rhythm Airway: Cervical ROM: WNL MP: 2 Dentition: Chipped and Other (poor dentition) Pulmonary: Comments: 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 difficile diarrhea Colitis due to Clostridioides difficile Conjunctivitis Constipation Diverticulitis Hematemesis Hematemesis/vomiting blood History of CVA (cerebrovascular accident) 2009 History of MRSA infection History of pulmonary embolism Hypokalemia IBS (irritable bowel syndrome) Vomiting Surgical History History of hemilaminectomy History of tubal ligation Family History Other Stroke Denies family history of Bleeding disorder Social History Smoking and tobacco status: current every day smoker Alcohol intake: never Caregiver/support person: No Lives independently: No Household members: children and friend(s) Housing: House Marital status: Single Number of children: 6 Current occupational status: unemployed History of recent travel: No Current gender identity: Female Data Anesthesia Cardiac Studies: No Data to Display
--- NOTE | 2020-07-30 06:35 | P.HP_ITS ---
Same Day Surgery H&P Indication for Procedure/HPI DATE OF PROCEDURE: July 30, 2020 CHIEF COMPLAINT/INDICATIONFOR SURGICAL PROCEDURE: Vomiting blood and epigastric pain PREOP DIAGNOSIS: Hematemesis and colitis PLANNED PROCEDRUE: Operation Date: 07/30/20 07:00 Proposed Procedures p EGD 48774/ COLONOSCOPY 42963 HEMATEMESIS K92.0/ COLITIS K52.9(Not Applicable) - Christiano Saavedra MD s EGD 55591/ COLONOSCOPY 47190(Not Applicable) - Christiano Saavedra MD This is a 35 years old female patient with history of epigastric pain has been stabbing in nature associated with hematemesis for quite some time and patient reports that she lost about 10 pounds in a week. Also she was recently hospitalized with colitis and turned out to be C. difficile positive.C. difficile toxin B gene DNA detected CT scan was obtained of the abdomen and pelvis and showed: 1. Sigmoid colon colitis versus diverticulitis, and associated constipation. 2. Mild hepatic steatosis. 3. Small hiatal hernia. Patient is referred to me for further evaluation and potential management Interim history 07/30/2020 Patient comes today for diagnostic EGD and colonoscopy. ROS All systems have been reviewed negative except as per problem list and HPI Medications/Allergies* Allergies/Adverse Reactions Allergy/AdvReac Type Severity Reaction Status Date / Time Sulfa (Sulfonamide Allergy Severe ALGY-Anaphy Verified 07/30/20 06:36 Antibiotics) laxis metronidazole [From Flagyl] Allergy Unknown hives Verified 07/30/20 06:36 chlorpromazine AdvReac Severe ADR-Halluci Verified 07/30/20 06:36 [From Thorazine] nating sulfa drugs Allergy Unknown Unknown Uncoded 07/30/20 06:36 Current Medications: Generic Name Dose Route Start Last Admin Trade Name Freq PRN Reason Stop Dose Admin Sodium Chloride 1,000 mls @ 30 mls/hr 07/30/20 06:15 07/30/20 06:23 Sodium Chloride 0.9% IV 30 mls/hr .Q24H REESE Administration Pertinent History/Comorbid Conditions* Medical History (Updated 07/23/20 @ 14:41 by Mingo Lockett MD) Abdominal pain Adult hypothyroidism C. difficile diarrhea Colitis due to Clostridioides difficile Conjunctivitis Constipation Diverticulitis Hematemesis Hematemesis/vomiting blood History of CVA (cerebrovascular accident) 2009 History of MRSA infection History of pulmonary embolism Hypokalemia IBS (irritable bowel syndrome) Vomiting Surgical History (Updated 04/09/20 @ 10:28 by MAXIMILIANO Mock) History of hemilaminectomy History of tubal ligation Family History (Updated 11/20/19 @ 12:15 by Claudia Silva, CT) Stroke Denies family history of Bleeding disorder Social History Smoking and tobacco status: current every day smoker Alcohol intake: never Caregiver/support person: No Lives independently: No Household members: children and friend(s) Housing: House Marital status: Single Number of children: 6 Current occupational status: unemployed History of recent travel: No Current gender identity: Female Pertinent Exam Findings alert, oriented x 3, clear to auscultation bilaterally, regular rate & rhythm and procedure specific exam findings (Abdominal examination nontender nondistended soft) Recommendations Surgery/Procedure today (EGD and colonoscopy with possible biopsy) Coding Level of Care Code Acute Sample Prep Technician for Concetta Woodruff
[2020-07-30 07:21] VITALS: BP 132/83; PULSE 92; RESP 16; TEMP 36.1; O2SAT 100
[2020-07-30 07:40] VITALS: BP 118/83; PULSE 88; RESP 18; O2SAT 96
--- NOTE | 2020-07-30 08:03 | PM.PACU ---
PACU note Post-Anesthesia Exam: awake and vital signs stable Disposition: discharged
--- NOTE | 2020-07-30 08:32 | PC.NURSE ---
PT REFUSING BARIUM ENEMA. STATES I'M TOO HUNGRY AND I DIDN'T SIGN UP FOR THIS. PT SIGNED AMA PAPER. DR. FLOR NOTIFIED.
[2020-07-31 09:18] LABS: H. Pylori / CLO Test Negative
== END 2020-07-30 08:31 | disposition home or self-care (01) ==
PROVIDERS: PCP Family Medicine Adult Medicine; Visit Provider Surgery
PROC: 0DJ08ZZ Inspection of Upper Intestinal Tract, Via Natural or Artificial Opening Endoscopic (ICD-10-PCS; CPT 43235; principal; 2020-07-30 07:00)
PROC: 0DJD8ZZ Inspection of Lower Intestinal Tract, Via Natural or Artificial Opening Endoscopic (ICD-10-PCS; CPT 45330; 2020-07-30 07:00)
DX: K92.0 Hematemesis (principal); R10.13 Epigastric pain; K57.30 Diverticulosis of large intestine without perforation or abscess without bleeding; K29.70 Gastritis, unspecified, without bleeding; E03.9 Hypothyroidism, unspecified; Z86.73 Personal history of transient ischemic attack (TIA), and cerebral infarction without residual deficits; Z86.14 Personal history of Methicillin resistant Staphylococcus aureus infection; Z86.711 Personal history of pulmonary embolism; F17.210 Nicotine dependence, cigarettes, uncomplicated
CPT/HCPCS: 12345; 43239; 45330; 87077; J2704; J7030

== ENCOUNTER 2020-12-29 15:42 | Emergency (ER) | payer MEDICAID, SELFPAY ==
[2020-12-29 15:50] VITALS: BP 120/76; PULSE 106; RESP 16; TEMP 37.1; O2SAT 93; BMI 28.3
--- NOTE | 2020-12-29 16:26 | PC.PHAR ---
PT STATES SHE TAKES CARE OF HER OWN MEDICATIONS-pt states she still takes LEVOTHYROXINE-rx last filled at [facility] [place] [facility] on 04/10/2020 30d/s-PT STATES SHE HAD A BUILD UP OF THE MEDICATIONS
[2020-12-29 16:39] LABS: Basophils # 0.1 10^3/uL (0.0-0.1); Basophils % 0.4 %; Eosinophils # 0.1 10^3/uL (0.0-0.8); Eosinophils % 0.6 %; Hematocrit 46.9 % (37.0-47.0); Hemoglobin 15.9 g/dL (11.5-15.3); Lymphocytes # 3.1 10^3/uL (0.8-4.8); Lymphocytes % 17.9 %; Mean Corpuscular HGB Conc 33.9 g/dL (30.0-36.0); Mean Corpuscular Hemoglobin 30.4 pg (28.0-34.0); Mean Corpuscular Volume 89.7 fL (81-99); Mean Platelet Volume 8.9 fL (7.4-10.4); Monocytes # 1.2 10^3/uL (0.2-0.9); Neutrophils % 73.5 %; Nucleated Red Blood Cells % 0 %; Platelet Count 295 10^3/cmm (130-400); Red Blood Count 5.23 10^6/uL (4.1-5.3); Red Cell Distribution Width 13.8 % (12.1-15.1); White Blood Count 17.3 10^3/uL (4.0-10.0)
[2020-12-29] MEDS: ondansetron 2 mg/ML SDV 2 mL 4 MG IVP (16:41)
[2020-12-29] MEDS: sodium chloride 0.9% 1,000 ML 999 ML IV (16:41)
--- NOTE | 2020-12-29 16:43 | CTR_ITS ---
PROCEDURE INFORMATION: Exam: CT Abdomen And Pelvis With Contrast Exam date and time: 12/29/2020 5:24 PM Age: 35 years old Clinical indication: Nausea; Abdominal pain; Generalized; Prior surgery; Surgery type: Tubal; Additional info: Abd pain TECHNIQUE: Imaging protocol: Computed tomography of the abdomen and pelvis with contrast. Radiation optimization: All CT scans at this facility use at least one of these dose optimization techniques: automated exposure control; mA and/or kV adjustment per patient size (includes targeted exams where dose is matched to clinical indication); or iterative reconstruction. Contrast material: OMNI 300; Contrast volume: 95 ml; Contrast route: INTRAVENOUS (IV); COMPARISON: CT abdomen pelvis w con* [id number] 06/03/2020 2:06 AM RADIATION DOSE METRICS: Total DLP (mGy-cm): 1548.12 FINDINGS: Lungs: Visualized lungs are clear. Pleural spaces: No pleural effusion. Heart: Visualized portions of the heart are unremarkable. Liver: Diffuse, mildly decreased attenuation in the liver. Findings are consistent with mild fatty infiltration. Gallbladder and bile ducts: The gallbladder is unremarkable. No biliary ductal dilatation. Pancreas: The pancreas is unremarkable. No pancreatic ductal dilatation. Spleen: The spleen is unremarkable. Adrenal glands: The right and left adrenal glands are unremarkable. Kidneys and ureters: Subcentimeter hypodense foci in both right and left kidneys that are too small to characterize, however likely represent small cysts. The right and left ureters are unremarkable. Stomach and bowel: Numerous diverticula in the sigmoid colon. Mild wall thickening of the sigmoid colon with surrounding pericolonic inflammatory change. There is a small metallic focus in the proximal transverse colon (series 2, image 41). An ingested foreign body cannot be ruled out. No acute abnormality in the small bowel. Appendix: The appendix is visualized and is unremarkable. No findings to suggest acute appendicitis. Intraperitoneal space: No free intraperitoneal air. No ascites. No loculated fluid collections to suggest an abscess. Vasculature: Mild atherosclerotic changes in the visualized arteries. No evidence for aortic aneurysm or aortic dissection. Hepatic veins, portal veins, splenic vein, and SMV are patent. Lymph nodes: No lymphadenopathy. Urinary bladder: The bladder is incompletely filled, which can limit evaluation. No focal abnormality in the bladder however. Reproductive: 1.7 x 2.7 cm hyperdense focus in the right ovary, this may represent a hemorrhagic cyst (series 2, image 64). Left ovarian cyst with an enhancing wall, possibly representing a degenerating ovarian cyst. This measures 1.8 x 1.3 cm (series 2, image 68). Bones/joints: No acute fracture. Soft tissues: No acute abnormality in the extra-abdominal soft tissues. CT/CT abdomen pelvis w con* [id number] IMPRESSION: 1. Sigmoid diverticulosis. Changes consistent with mild sigmoid diverticulitis. 2. There is a small metallic focus in the proximal transverse colon (series 2, image 41). An ingested foreign body cannot be ruled out. Recommend clinical correlation. 3. Mild fatty infiltration of the liver. 4. 1.7 x 2.7 cm hyperdense focus in the right ovary, this may represent a hemorrhagic cyst. Pelvic ultrasound may be beneficial for further evaluation. 5. Probable degenerating cyst in the left ovary. 6. Incidental/nonacute findings are listed in the report. COMMENTS: 1. THIS REPORT CONTAINS FINDINGS THAT MAY BE CRITICAL TO PATIENT CARE. The findings were verbally communicated via telephone conference with LOUIE Davidson at 5:57 PM CDT on 12/29/2020. The findings were acknowledged and understood. 2. Consistent with the [employer]'s Incidental Findings Committee white paper (J Am Maria Esther Radiol 2018): Any incidental renal lesion less than 1 cm or classified as too small to characterize, or any incidental cystic renal lesion characterized as simple-appearing, is likely benign. No follow-up imaging is recommended for these lesions per consensus recommendations based on imaging criteria. Radiation Dose CTDIVOL = (mGy): DLP = 1548.12 (mGy-cm)
--- NOTE | 2020-12-29 16:52 | W.ED.NAVMDI ---
HPI - Nausea/Vomiting/Diarrhea General: Chief complaint: Nausea/Vomiting/Diarrhea Stated complaint: AB PAIN Time Seen by Provider: 12/29/20 15:56 History of Present Illness: HPI Narrative: 35-year-old female presents emergency room with complaint of generalized abdominal pain she cannot really localize it for me other than what is a she just hurts everywhere and everything is sore. States she has had nausea vomiting and diarrhea she did have an episode of hematochezia over the weekend. She is run some low-grade fevers although she does not want to have one now. She denies dysuria urgency or frequency. MD elicited complaint: nausea, vomiting and diarrhea Onset (ago): day(s) Description of vomiting: food contents and watery Description of diarrhea: blood and mucus Associated nausea: Yes Associated abdominal pain: Yes Location of pain: Diffuse Pain consistency: constant Severity: moderate Quality: cramping Exacerbating factors: none Relieving factors: none Associated symtoms: Reports anorexia and nausea; Denies altered mental status, anxiety, bloating, change in vision, chest pain, cough, diaphoresis, decreased urine output, dizziness, dysuria, epistaxis, fatigue, fecal incontinence, fevers/chills, headache(s), malaise, myalgias, numbness, palpitations, rash, short of breath, syncope, tenesmus, tinnitus or weakness Review of Systems Const: Denies: fatigue, malaise or diaphoresis Eyes: Denies: change in vision ENMT: Denies: tinnitus or epistaxis Card: Denies: chest pain, palpitations or syncope Resp: Denies: dyspnea, productive cough or non-productive cough GI: Reports: nausea; Denies: bloating or fecal incontinence : Denies: dysuria Skin/Breast: Denies: rash or pruritus Neuro: Denies: headache(s) or dizziness Psych: Denies: anxiety PFSH ED PFSH: Medical History (Updated 12/29/20 @ 18:04 by Bert Powers DO) Abdominal pain Adult hypothyroidism C. difficile diarrhea Cellulitis and abscess of face Colitis due to Clostridioides difficile Conjunctivitis Constipation Diverticulitis Diverticulosis Hematemesis Hematemesis/vomiting blood History of CVA (cerebrovascular accident) 2010 History of MRSA infection History of pulmonary embolism Hypokalemia IBS (irritable bowel syndrome) Insect bite Rectal tear Vomiting Surgical History History of hemilaminectomy History of tubal ligation Family History Other Stroke Denies family history of Bleeding disorder Social History Smoking and tobacco status: current every day smoker Alcohol intake: never Caregiver/support person: No Lives independently: No Household members: children and friend(s) Housing: House Marital status: Single Number of children: 6 Current occupational status: unemployed History of recent travel: No Current gender identity: Female Physical Exam Const: COMMON NORMALS: no acute distress EXAM LIMITATIONS: no altered mental status GENERAL APPEARANCE: cooperative and comfortable ORIENTATION/CONSCIOUSNESS: Yes awake, Yes oriented to person, Yes oriented to place and Yes oriented to time HENMT: COMMON NORMALS: normocephalic, atraumatic and hearing grossly normal bilaterally HEAD & SCALP: normocephalic and atraumatic Eye: COMMON NORMALS: Equal, round and reactive pupils present, EOMs intact bilaterally, conjunctivae normal and no scleral icterus CONJUNCTIVA: Yes conjunctivae normal PUPIL: Yes Equal, round and reactive pupils present Neck/C-Spine: COMMON NORMALS: full ROM, no lymphadenopathy, supple and no JVD Lymph: LYMPHATIC: no lymphadenopathy noted and no lymphedema noted Resp: COMMON NORMALS: normal respiratory effort, No retractions, No use of accessory muscles and clear to auscultation bilaterally AUSCULTATION: clear to auscultation bilaterally Cardio: COMMON NORMALS: no JVD, regular rate, regular rhythm and No murmurs present (Cardio) RATE: regular rate RHYTHM: regular rhythm GI: COMMON NORMALS: No hepatosplenomegaly present AUSCULTATION: Yes normoactive bowel sounds PALPATION: Yes Tenderness to palpation present (GI) (Diffuse) and Yes No hepatosplenomegaly present Extremity: COMMON NORMALS: normal to inspection, capillary refill normal, no clubbing, cyanosis or edema, no calf tenderness and no pedal edema Neuro: SENSORIUM/ORIENTATION: Yes oriented to person, Yes oriented to place and Yes oriented to time Skin: COMMON NORMALS: no rashes or lesions noted GENERAL SKIN EXAM: no rashes or lesions noted Course Vital Signs: Vital signs: Vital Signs Temperature 98.8 F 12/29/20 15:50 Pulse Rate 92 12/29/20 18:50 Respiratory Rate 22 H 12/29/20 17:02 Blood Pressure 124/81 12/29/20 18:50 Pulse Oximetry 98 12/29/20 18:50 MDM - Nausea/Vomiting/Diarrhea MDM Narrative: Medical decision making narrative: Reviewed findings with the patient we will treat for diverticulitis encourage her to follow-up with primary care for ovarian cyst. Medications given including pain medications and antibiotics if has any further problems return to the emergency room. Lab Data: Attestation: I reviewed the patient's lab results. Labs: Lab Results 12/29/20 12/29/20 12/29/20 Range/Units 16:16 16:16 16:16 WBC 17.3 H (4.0-10.0) 10^3/ uL RBC 5.23 (4.1-5.3) 10^6/u L Hgb 15.9 H (11.5-15.3) g/dL Hct 46.9 (37.0-47.0) % MCV 89.7 (81-99) fL MCH 30.4 (28.0-34.0) pg MCHC 33.9 (30.0-36.0) g/dL RDW 13.8 (12.1-15.1) % Plt Count 295 (130-400) 10^3/c mm MPV 8.9 (7.4-10.4) fL Neut % (Auto) 73.5 % Lymph % (Auto) 17.9 % [place] % (Auto) 7.0 % Eos % (Auto) 0.6 % Baso % (Auto) 0.4 % Neut # (Auto) 12.70 H (1.8-7.7) 10^3/u L Lymph # (Auto) 3.1 (0.8-4.8) 10^3/u L [place] # (Auto) 1.2 H (0.2-0.9) 10^3/u L Eos # (Auto) 0.1 (0.0-0.8) 10^3/u L Baso # (Auto) 0.1 (0.0-0.1) 10^3/u L Nucleated RBC % (a uto) 0 % Nucleated RBCs # 0.0 /100WBC Sodium 135 L (136-145) mmol/L Potassium 4.2 (3.5-5.1) mmol/L Chloride 103 (98-107) mmol/L Carbon Dioxide 21 L (22-29) mmol/L Anion Gap 15.2 (5-19) BUN 9 (6-20) mg/dL Creatinine 0.6 (0.5-0.9) mg/dL GFR Calculation 113.1 (90-130) mL/min Glucose 109 (65-115) mg/dL Calculated Osmolal ity 279 L (285-295) mOsm/k g Calcium 8.7 (8.5-10.5) mg/dL Total Bilirubin 1.1 (0.15-1.2) mg/dL AST 13 (0-32) U/L ALT 19 (0-33) U/L Alkaline Phosphata se 69 (35-105) IU/L Total Protein 6.7 (6.6-8.7) g/dL Albumin 3.7 (3.5-5.2) g/dL Globulin 3.0 (1.3-4.6) g/dL Lipase 18 (13-60) U/L HCG, Qual Negative (Negative) Urine Color (Yellow) Urine Appearance (CLEAR) Urine pH (5-7) Ur Specific Gravit y (1.005-1.030) Urine Protein (Negative) Urine Glucose (UA) (Normal) Urine Ketones (Negative) Urine Blood (Negative) Urine Nitrate (Negative) Urine Bilirubin (Negative) Urine Urobilinogen (Negative) mg/dL Ur Leukocyte Elvie ase (Negative) Urine RBC (0-2) /hpf Urine WBC (0-5) /hpf Ur Squamous Epith Cells (0-5) /hpf Ur Transition Epit h Cell /hpf Amorphous Sediment Urine Bacteria (NONE) /hpf Urine Mucus /hpf 12/29/20 Range/Units 16:16 WBC (4.0-10.0) 10^3/ uL RBC (4.1-5.3) 10^6/u L Hgb (11.5-15.3) g/dL Hct (37.0-47.0) % MCV (81-99) fL MCH (28.0-34.0) pg MCHC (30.0-36.0) g/dL RDW (12.1-15.1) % Plt Count (130-400) 10^3/c mm MPV (7.4-10.4) fL Neut % (Auto) % Lymph % (Auto) % [place] % (Auto) % Eos % (Auto) % Baso % (Auto) % Neut # (Auto) (1.8-7.7) 10^3/u L Lymph # (Auto) (0.8-4.8) 10^3/u L [place] # (Auto) (0.2-0.9) 10^3/u L Eos # (Auto) (0.0-0.8) 10^3/u L Baso # (Auto) (0.0-0.1) 10^3/u L Nucleated RBC % (a uto) % Nucleated RBCs # /100WBC Sodium (136-145) mmol/L Potassium (3.5-5.1) mmol/L Chloride (98-107) mmol/L Carbon Dioxide (22-29) mmol/L Anion Gap (5-19) BUN (6-20) mg/dL Creatinine (0.5-0.9) mg/dL GFR Calculation (90-130) mL/min Glucose (65-115) mg/dL Calculated Osmolal ity (285-295) mOsm/k g Calcium (8.5-10.5) mg/dL Total Bilirubin (0.15-1.2) mg/dL AST (0-32) U/L ALT (0-33) U/L Alkaline Phosphata se (35-105) IU/L Total Protein (6.6-8.7) g/dL Albumin (3.5-5.2) g/dL Globulin (1.3-4.6) g/dL Lipase (13-60) U/L HCG, Qual (Negative) Urine Color Dark yellow (Yellow) Urine Appearance Clear (CLEAR) Urine pH 6.5 (5-7) Ur Specific Gravit y 1.010 (1.005-1.030) Urine Protein Neg (Negative) Urine Glucose (UA) Norm (Normal) Urine Ketones Negative (Negative) Urine Blood 3+ H (Negative) Urine Nitrate Negative (Negative) Urine Bilirubin 1+ H (Negative) Urine Urobilinogen 4 H (Negative) mg/dL Ur Leukocyte Elvie ase Negative (Negative) Urine RBC 10-15 H (0-2) /hpf Urine WBC 5-10 H (0-5) /hpf Ur Squamous Epith Cells 5-10 H (0-5) /hpf Ur Transition Epit h Cell 0-4 /hpf Amorphous Sediment Not Reportable Urine Bacteria 1+ H (NONE) /hpf Urine Mucus 2+ /hpf Discharge Plan Discharge Patient Disposition: Home Clinical Impression: Diverticulitis, Ovarian cyst Condition: Stable Prescriptions: New Augmentin 875-125 mg tablet 1 tab PO BID Qty: 20 RF: 0 hydrocodone-acetaminophen 5-325 mg tablet 1 tab PO Q6H PRN (Reason: pain) Qty: 20 RF: 0 Zofran 4 mg tablet 4 mg PO Q6H PRN (Reason: nausea and vomiting) Qty: 20 RF: 0 No Action albuterol sulfate [ProAir HFA] 90 mcg/actuation HFA aerosol inhaler 2 puff INHALATION Q6H PRN (Reason: shortness of breath or wheezing) 30 Days Qty: 8.5 RF: 2 levothyroxine 25 mcg tablet 25 mcg PO DAILY RF: 0 Discharge Orders: Discharge ED (Routine); Ordered 12/29/20 Ordered By: Bert Powers Discharge Diet: Clear Liquid Discharge Activity: Increase activity as tolerated Patient Instructions: Opioid Safety Activity Restrictions/Additional Instructions: Up with your primary care doctor for a look ultrasound for the ovarian cyst. Coding Level of Care Code ED Electric Tape Slitter for Katherineg Fwd Exam Comprehensive
[2020-12-29 17:02] VITALS: RESP 22; O2SAT 97
[2020-12-29] MEDS: morphine 4 mg/mL SDV 1 mL IVP (17:02)
[2020-12-29 17:07] LABS: Alanine Aminotransferase 19 U/L (0-33); Albumin Level 3.7 g/dL (3.5-5.2); Alkaline Phosphatase 69 IU/L (35-105); Anion Gap 15.2 (5-19); Aspartate Amino Transferase 13 U/L (0-32); Blood Urea Nitrogen 9 mg/dL (6-20); Calcium 8.7 mg/dL (8.5-10.5); Carbon Dioxide 21 mmol/L (22-29); Chloride 103 mmol/L (98-107); Glomerular Filtration Rate 113.1 mL/min (90-130); Glucose 109 mg/dL (65-115); Lipase 18 U/L (13-60); Osmolality Calculated 279 mOsm/kg (285-295); Potassium 4.2 mmol/L (3.5-5.1); Sodium 135 mmol/L (136-145); Total Bilirubin 1.1 mg/dL (0.15-1.2); Total Protein 6.7 g/dL (6.6-8.7)
[2020-12-29 17:13] LABS: HCG, Serum Qual Negative (Negative)
[2020-12-29] MEDS: iohexol 300 mg/mL 100 mL Btl IV (17:26)
[2020-12-29 17:44] VITALS: BP 131/83; PULSE 93; O2SAT 95
[2020-12-29 17:50] LABS: Glucose Urine UA Norm (Normal); Ketones Urine Negative (Negative); Nitrate Urine Negative (Negative); Protein Urine Neg (Negative); Urine Appearance Clear (CLEAR); Urine Color Dark Yellow (Yellow); pH Urine 6.5 (5-7)
[2020-12-29 17:51] LABS: Add Urine Culture? Yes; Add Urine Microscopic? YES; Bacteria Urine 1+ /hpf; Bilirubin Urine 1+ (Negative); Blood Urine 3+ (Negative); Leukocyte Esterase Urine Negative (Negative); Mucus Urine 2+ /hpf; Transitional Epi Cells Urine 0-4 /hpf; Urobilinogen Urine 4 mg/dL (Negative)
[2020-12-29 18:50] VITALS: BP 124/81; PULSE 92; O2SAT 98
== END 2020-12-29 18:30 | disposition home or self-care (01) ==
PROVIDERS: Emergency Provider Family Medicine
DX: K57.92 Diverticulitis of intestine, part unspecified, without perforation or abscess without bleeding (principal); N83.202 Unspecified ovarian cyst, left side; Z86.73 Personal history of transient ischemic attack (TIA), and cerebral infarction without residual deficits; F17.210 Nicotine dependence, cigarettes, uncomplicated
CPT/HCPCS: 74177; 80053; 81001; 83690; 84703; 85025; 87086; 96361; 96374; 96375; 99283; J2270; J2405; J7030; Q9967

== ENCOUNTER 2021-03-23 11:58 | Emergency (ER) | payer MEDICAID, SELFPAY ==
[2021-03-23 12:28] VITALS: BP 103/75; PULSE 88; RESP 18; TEMP 36.9; O2SAT 95; BMI 30.2
[2021-03-23 15:09] LABS: Basophils # 0.1 10^3/uL (0.0-0.1); Basophils % 0.5 %; Eosinophils # 0.3 10^3/uL (0.0-0.8); Eosinophils % 2.4 %; Hematocrit 47.8 % (37.0-47.0); Hemoglobin 15.8 g/dL (11.5-15.3); Lymphocytes # 3.9 10^3/uL (0.8-4.8); Mean Corpuscular HGB Conc 33.1 g/dL (30.0-36.0); Mean Corpuscular Hemoglobin 29.9 pg (28.0-34.0); Mean Corpuscular Volume 90.5 fL (81-99); Mean Platelet Volume 8.7 fL (7.4-10.4); Monocytes % 7.7 %; Neutrophils # 7.33 10^3/uL (1.8-7.7); Nucleated Red Blood Cells % 0 %; Platelet Count 268 10^3/cmm (130-400); Red Blood Count 5.28 10^6/uL (4.1-5.3); Red Cell Distribution Width 13.2 % (12.1-15.1); White Blood Count 12.7 10^3/uL (4.0-10.0)
[2021-03-23 15:29] LABS: Alanine Aminotransferase 15 U/L (0-33); Albumin Level 3.6 g/dL (3.5-5.2); Alkaline Phosphatase 70 IU/L (35-105); Anion Gap 14.8 (5-19); Aspartate Amino Transferase 12 U/L (0-32); Blood Urea Nitrogen 10 mg/dL (6-20); Calcium 8.7 mg/dL (8.5-10.5); Carbon Dioxide 24 mmol/L (22-29); Chloride 102 mmol/L (98-107); Globulin 3.1 g/dL (1.3-4.6); Glomerular Filtration Rate 113.1 mL/min (90-130); Glucose 96 mg/dL (65-115); Potassium 3.8 mmol/L (3.5-5.1); Sodium 137 mmol/L (136-145); Total Bilirubin 0.3 mg/dL (0.15-1.2); Total Protein 6.7 g/dL (6.6-8.7)
== END 2021-03-23 17:49 | disposition left against medical advice (07) ==
PROVIDERS: Emergency Medicine; Emergency Provider Family Medicine
DX: R10.9 Unspecified abdominal pain (principal); R11.0 Nausea; R19.7 Diarrhea, unspecified; Z53.21 Procedure and treatment not carried out due to patient leaving prior to being seen by health care provider
CPT/HCPCS: 80053; 85025

== ENCOUNTER 2022-01-25 10:52 | Emergency (ER) | payer MEDICAID, SELFPAY ==
[2022-01-25 11:13] VITALS: BP 174/104; PULSE 85; RESP 16; TEMP 36.9; O2SAT 98
--- NOTE | 2022-01-25 11:24 | ED_ITS ---
HPI - Dental/Oral General: Chief complaint: Dental/Oral Stated complaint: tooth infection Time Seen by Provider: 01/25/22 11:17 Source: patient Mode of arrival: ambulatory Limitations: no limitations History of Present Illness: Patient is a 36-year-old female who presents to ED today with a complaint of left lower dental pain and facial swelling that she noticed this morning when she woke up from sleep. Patient states she has very poor dentition and knows she needs to see a dentist but has financial restrictions in doing so. Patient is not having any difficulty breathing or trouble swallowing. She is not running any fevers. She has not noticed any swelling into her neck. MD Complaint: tooth pain Teeth map: 1. Onset (ago): hour(s) (awoke with swelling/pain) Duration: constant Severity: moderate Relieving factors: nothing Exacerbating factors: nothing Context: history of dental caries and poor dental care Associated symptoms: Reports no associated symptoms; Denies ear or mastoid pain, fever(s) or odynophagia Treatment prior to arrival: none Review of Systems Const: Denies: fever(s), chills, body aches, fatigue or malaise Eyes: Denies: change in vision or blurry vision ENMT: Reports: dental pain; Denies: throat pain, uvular edema, enlarged tonsils, odynophagia, hoarseness, swelling of lips/tongue, oral sores, ear or mastoid pain, ear discharge, nasal discharge, nasal congestion or sinus pain Card: Denies: chest pain Resp: Denies: dyspnea GI: Denies: abdominal pain, nausea or vomiting Musc: Denies: neck pain Skin/Breast: Denies: rash Neuro: Denies: headache(s) PFS ED PFSH: Medical History Abdominal pain, chronic, bilateral lower quadrant Adult hypothyroidism Back Pain Bronchospasm C. difficile diarrhea Cellulitis and abscess of face Colitis due to Clostridioides difficile Conjunctivitis Conjunctivitis Constipation Dental abscess Diverticulosis Hematemesis Hematemesis/vomiting blood History of CVA (cerebrovascular accident) 2009 History of MRSA infection History of pulmonary embolism Hypokalemia IBS (irritable bowel syndrome) Lumbosacral strain Rectal tear Sprain of ankle, left Vomiting Surgical History History of hemilaminectomy History of tubal ligation Family History Other Stroke Denies family history of Bleeding disorder Social History Alcohol intake: never Caregiver/support person: No Lives independently: No Household members: children and friend(s) Housing: House Marital status: Single Number of children: 6 Current occupational status: unemployed History of recent travel: No Current gender identity: Female Physical Exam Const: COMMON NORMALS: no acute distress, patient oriented x3, no limitations and alert GENERAL APPEARANCE: cooperative ORIENTATION/CONSCIOUSNESS: Yes awake, Yes oriented to person, Yes oriented to place and Yes oriented to time HENMT: COMMON NORMALS: normocephalic, atraumatic, Normal nasal mucous membranes and turbinates present, moist oral mucous membranes and oropharynx normal HEAD & SCALP: normal to inspection, normocephalic and atraumatic FACE & SINUS IMAGES: 1. mild facial swelling to L mid mandibular region NOSE: Normal nasal mucous membranes and turbinates present MOUTH: Normal oral and palatal mucosa present, lip normal, tongue normal and other (floor of mouth is soft/non-raised) TEETH & GINGIVA: Yes poor dentition and Yes other (pt has widespread dental disease with extensive caries ) TEETH & GINGIVA IMAGES: 1. every tooth is completely decayed to base; she has swelling to gumline but no drainable abscess at this time THROAT: posterior oropharynx normal, tonsils normal and uvula midline; no uvular edema Neck/C-Spine: COMMON NORMALS: full ROM, no lymphadenopathy and supple GENERAL: No anterior neck swelling and No submandibular swelling Resp: COMMON NORMALS: normal respiratory effort Cardio: COMMON NORMALS: regular rate and regular rhythm RATE: regular rate RHYTHM: regular rhythm Neuro: COMMON NORMALS: patient oriented x3 and CN's II-XII intact bilaterally SENSORIUM/ORIENTATION: Yes alert, Yes oriented to person, Yes oriented to place and Yes oriented to time Course Vital Signs: Vital signs: Vital Signs Temperature 98.5 F 01/25/22 11:13 Pulse Rate 85 01/25/22 11:13 Respiratory Rate 16 01/25/22 11:13 Blood Pressure 174/104 01/25/22 11:13 Pulse Oximetry 98 01/25/22 11:13 MDM - Dental/Oral Medical Decision Making Patient has a developing abscess but nothing drainable at this time. She will be given IM clindamycin and a prescription. Strict return to ED precautions given. Discussed prompt follow-up with a dentist. Dental resources provided. Discharge Plan Discharge Patient Disposition: Home Clinical Impression: Dental abscess, Dental caries Condition: Stable Prescriptions: New clindamycin HCl 300 mg capsule 300 mg PO Q6H 7 Days Qty: 28 0RF No Action celecoxib 200 mg capsule 200 mg PO BID Qty: 60 3RF amoxicillin 500 mg capsule 500 mg PO BID Qty: 20 0RF levothyroxine 25 mcg tablet 25 mcg PO DAILY Qty: 30 5RF dicyclomine 20 mg tablet 20 mg PO .q6 Qty: 30 1RF pantoprazole 20 mg tablet,delayed release (DR/EC) 20 mg PO DAILY Qty: 30 2RF erythromycin 5 mg/gram (0.5 %) ointment 0.5 inch ophthalmic (eye) BID Qty: 3.5 1RF cyclobenzaprine 5 mg tablet 5 mg PO Q8H PRN (Reason: muscle spasm) Qty: 20 0RF albuterol sulfate [ProAir HFA] 90 mcg/actuation HFA aerosol inhaler 2 puff INHALATION Q6H PRN (Reason: shortness of breath or wheezing) 30 Days Qty: 8.5 2RF Discharge Orders: Discharge ED (Routine); Ordered 01/25/22 Ordered By: Stefany Espinal Referrals: Mingo Lockett MD [Primary Care Provider] - Coding Level of Care Code ED Cloth [employer] Singer for Concetta Woodruff
[2022-01-25] MEDS: clindamycin 150 mg/mL SDV 6 mL 600 MG IM (11:40)
[2022-01-25] MEDS: clindamycin 150 mg Capsule 300 MG PO (11:40)
== END 2022-01-25 11:46 | disposition home or self-care (01) ==
PROVIDERS: Emergency Provider Physician Assistant; PCP Family Medicine Adult Medicine
DX: K04.7 Periapical abscess without sinus (principal); K02.9 Dental caries, unspecified
CPT/HCPCS: 96372; 99283; J3490

== ENCOUNTER 2022-08-26 08:18 | Emergency (ER) | payer MEDICAID, SELFPAY ==
[2022-08-26] VITALS (9 sets, daily range): BP systolic 124–172; BP diastolic 79–117; PULSE 68–90; RESP 10–20; O2SAT 93–97; BMI 30.1
--- NOTE | 2022-08-26 08:23 | ECG_ITS ---
[facility] Test Date: 2022-08-26 Pat Name: Elena Cano Department: Room: Gender: Female Geological Manager: : 1985 Requested By: Bert Gross Order Number: [id number] Nghia MD: Maxine Beal M.D. Measurements Intervals [place] Rate: 81 P: 69 FL: 176 QRS: -7 QRSD: 85 T: 63 QT: 396 QTc: 462 Interpretive Statements SINUS RHYTHM Compared to ECG 09/28/2014 21:02:27 Left-axis deviation no longer present Electronically Signed On 08-26-2022 21:08:32 BREAD DOUGH MIXER by Maxine Beal M.D. [id number]
--- NOTE | 2022-08-26 08:30 | CT_ITS ---
WS: [id number] CT HEAD TECHNIQUE: Noncontrast CT of the head obtained from the skullbase to the vertex. CLINICAL INFORMATION: visual disturbance COMPARISON: November 14, 2013 DLP: 1200.[address] scans at [facility] use at least one of these dose optimization techniques: automated e xposure control; mA and/or kV adjustment per patient size (includes targeted exams where dose is matc hed to clinical indication); or iterative reconstruction. FINDINGS: No evidence of intracranial hemorrhage or mass effect. Ventricular system and basal cisterns are miller nt. No extra-axial fluid collections. No evidence of mass or mass effect.Chronic encephalomalacia RIG HT parasagittal occipital lobe unchanged since 2013 likely due to prior trauma or infarct. Paranasal sinuses and mastoid air cells are well aerated.Normal visualized soft tissues. Incidental s lightly low-lying cerebellar tonsils. Normal 4th ventricle. No hydrocephalus. CT/CT head wo con* [id number] IMPRESSION: 1. No evidence of intracranial hemorrhage or mass effect. 2. Chronic encephalomalacia RIGHT parasagittal occipital lobe unchanged since 2013 likely due to prior infarct. 3. No acute intracranial findings.
--- NOTE | 2022-08-26 08:32 | W.ED.NEUROSD ---
HPI - Neuro Symptoms/Deficit General: Chief Complaint: Dizziness Stated Complaint: dizzy Time Seen by Provider: 08/26/22 08:22 Source: patient Mode of arrival: ambulatory History of Present Illness: 37-year-old female presents emergency room reporting inverted vision. She states she had a episode this morning about 20 minutes for arrival where her vision inverted top to bottom and then resolve. No nausea or vomiting no chest pain. She states she has a history of previous stroke several years ago. Arrival here she has no lateralizing symptoms. No other symptoms. Has not recently been ill no fever sweats chills Onset (ago): minute(s) Location: other (Vision) History of same: No Relieving factors: none Exacerbating factors: none Context: sudden onset Associated symptoms: Deny chest pain, cough, diaphoresis, fevers/chills, headache(s), anorexia, malaise, nausea, seizures, short of breath, syncope, tingling, vertigo, vomiting or weakness Treatments Prior to Arrival: none Review of Systems Const: Denies: fever(s), chills, fatigue, malaise or diaphoresis Eyes: Reports: change in vision ENMT: Denies: throat pain, ear or mastoid pain, nasal discharge or nasal congestion Card: Denies: chest pain, palpitations, irregular heart rhythm, edema or syncope Resp: Denies: dyspnea, productive cough or non-productive cough GI: Denies: abdominal pain, nausea or vomiting : Denies: flank pain, difficulty voiding, dysuria, urinary frequency or urinary urgency Skin/Breast: Denies: rash or pruritus Neuro: Denies: headache(s) or vertigo PFS ED PFSH: Medical History Abdominal pain, chronic, bilateral lower quadrant Adult hypothyroidism Anxiety as acute reaction to exceptional stress Dental abscess Diverticulosis Elevated blood pressure reading Folliculitis and perifolliculitis History of CVA (cerebrovascular accident) 2010 History of MRSA infection History of pulmonary embolism IBS (irritable bowel syndrome) Lumbosacral strain Surgical History History of hemilaminectomy History of tubal ligation Family History Other Stroke Denies family history of Bleeding disorder Social History Alcohol intake: never Caregiver/support person: No Lives independently: No Household members: children and friend(s) Housing: House Marital status: Single Number of children: 6 Current occupational status: unemployed History of recent travel: No Current gender identity: Female NIH stroke score NIHSS: Level Of Consciousness - 1a: 0 Level Of Consciousness Questions - 1b: Both Correct Level Of Consciousness Commands - 1c: Both Correct Best Gaze - 2: Normal Visual Simental - 3: No Visual Loss Facial Palsy - 4: Normal Motor Arm Right - 5: No Drift Motor Arm Left - 5: No Drift Motor Leg Right - 6: No Drift Motor Leg Left - 6: No Drift Limb Ataxia - 7: Absent Sensory - 8: Normal Best Language - 9: No Aphasia Dysarthia - 10: Normal Extinction And Inattention - 11: 0 Score: Total Score: 0 Physical Exam Const: COMMON NORMALS: no acute distress GENERAL APPEARANCE: cooperative and comfortable ORIENTATION/CONSCIOUSNESS: Yes awake, Yes oriented to person, Yes oriented to place and Yes oriented to time HENMT: COMMON NORMALS: normocephalic, atraumatic, hearing grossly normal bilaterally, external ears normal, EAC's normal, TM's normal bilaterally, Normal nasal mucous membranes and turbinates present, moist oral mucous membranes and oropharynx normal HEAD & SCALP: normocephalic and atraumatic NOSE: Normal nasal mucous membranes and turbinates present EXTERNAL EAR: Yes external ears normal EXTERNAL AUDITORY CANAL: EAC's normal TYMPANIC MEMBRANE: TM's normal bilaterally Eye: COMMON NORMALS: Equal, round and reactive pupils present, EOMs intact bilaterally, conjunctivae normal and no scleral icterus CONJUNCTIVA: Yes conjunctivae normal PUPIL: Yes Equal, round and reactive pupils present Resp: COMMON NORMALS: normal respiratory effort, No retractions, No use of accessory muscles and clear to auscultation bilaterally AUSCULTATION: clear to auscultation bilaterally Cardio: COMMON NORMALS: regular rate, regular rhythm and No murmurs present (Cardio) RATE: regular rate RHYTHM: regular rhythm GI: COMMON NORMALS: Soft to palpation and No hepatosplenomegaly present AUSCULTATION: Yes normoactive bowel sounds PALPATION: Yes Soft to palpation, No Tenderness to palpation present (GI), No Guarding due to palpation present (GI) and Yes No hepatosplenomegaly present Extremity: COMMON NORMALS: normal to inspection, capillary refill normal, no clubbing, cyanosis or edema, no calf tenderness and no pedal edema Neuro: SENSORIUM/ORIENTATION: Yes oriented to person, Yes oriented to place and Yes oriented to time Skin: COMMON NORMALS: no rashes or lesions noted GENERAL SKIN EXAM: no rashes or lesions noted Course Vital Signs: Vital signs: Vital Signs Pulse Rate 70 08/26/22 12:00 Respiratory Rate 19 H 08/26/22 12:00 Blood Pressure 124/79 08/26/22 12:00 Pulse Oximetry 96 08/26/22 12:00 Oxygen Delivery Me thod 08/26/22 08:24 MDM - Neuro Symptoms/Deficit Medical Decision Making Labs and imaging reviewed. Evidence of previous stroke, no current symptoms. Patient is not on any anticoagulants. She does have evidence of an old stroke on the CT she also tells me she had a previous PE although she cannot give me a lot of details around. At this point she is asymptomatic. We will discharge her home have her take baby aspirin daily follow-up with primary care. Blood pressure was elevated when she first arrived but has normalized did not make any changes to her medication beyond the aspirin daily. Medical Records I reviewed the patient's medical records. Lab Data I reviewed the patient's lab results. 08/26/22 08:37 08/26/22 08:[address] 08/26/22 08:30 IMPRESSION: 1. No evidence of intracranial hemorrhage or mass effect. 2. Chronic encephalomalacia RIGHT parasagittal occipital lobe unchanged since 2013 likely due to prior infarct. 3. No acute intracranial findings. Laboratory Results WBC 9.4 10^3/uL (4.0-10.0) 08/26/22 08:37 RBC 4.65 10^6/uL (4.1-5.3) 08/26/22 08:37 Hgb 14.0 g/dL (11.5-15.3) 08/26/22 08:37 Hct 41.0 % (37.0-47.0) 08/26/22 08:37 MCV 88.2 fl (81-99) 08/26/22 08:37 MCH 30.1 pg (28.0-34.0) 08/26/22 08:37 MCHC 34.1 g/dL (30.0-36.0) 08/26/22 08:37 RDW 12.9 % (12.1-15.1) 08/26/22 08:37 Plt Count 276 10^3/cmm (130-400) 08/26/22 08:37 MPV 8.3 fL (7.4-10.4) 08/26/22 08:37 Neut % (Auto) 67.8 % 08/26/22 08:37 Lymph % (Auto) 23.5 % 08/26/22 08:37 [place] % (Auto) 6.0 % 08/26/22 08:37 Eos % (Auto) 1.8 % 08/26/22 08:37 Baso % (Auto) 0.6 % 08/26/22 08:37 Neut # (Auto) 6.38 10^3/uL (1.8-7.7) 08/26/22 08:37 Lymph # (Auto) 2.2 10^3/uL (0.8-4.8) 08/26/22 08:37 [place] # (Auto) 0.6 10^3/uL (0.2-0.9) 08/26/22 08:37 Eos # (Auto) 0.2 10^3/uL (0.0-0.8) 08/26/22 08:37 Baso # (Auto) 0.1 10^3/uL (0.0-0.1) 08/26/22 08:37 Nucleated RBC % (auto) 0 % 08/26/22 08:37 Nucleated RBCs # 0.0 /100WBC 08/26/22 08:37 Sodium 133 mmol/L (136-145) L 08/26/22 08:37 Potassium 4.3 mmol/L (3.5-5.1) 08/26/22 08:37 Chloride 97 mmol/L (98-107) L 08/26/22 08:37 Carbon Dioxide 26 mmol/L (22-29) 08/26/22 08:37 Anion Gap 14.3 (5-19) 08/26/22 08:37 BUN 11 mg/dL (6-20) 08/26/22 08:37 Creatinine 0.6 mg/dL (0.5-0.9) 08/26/22 08:37 GFR Calculation 111.9 mL/min (90-130) 08/26/22 08:37 Glucose 94 mg/dL (65-115) 08/26/22 08:37 Calculated Osmolality 275 mOsm/kg (285-295) L 08/26/22 08:37 Calcium 9.7 mg/dL (8.5-10.5) 08/26/22 08:37 Discharge Plan Discharge Patient Disposition: Home Clinical Impression: Visual disturbance, CVA (cerebrovascular accident), Dizziness Condition: Stable Prescriptions: New aspirin 81 mg tablet,delayed release (DR/EC) 81 mg PO DAILY Qty: 30 0RF No Action doxycycline hyclate 100 mg capsule 100 mg PO BID Qty: 20 0RF erythromycin 5 mg/gram (0.5 %) ointment 0.5 inch ophthalmic (eye) BID Qty: 3.5 1RF buspirone 7.5 mg tablet 7.5 mg PO TID Qty: 90 1RF citalopram [Celexa] 20 mg tablet 20 mg PO DAILY Qty: 30 1RF pantoprazole 20 mg tablet,delayed release (DR/EC) 20 mg PO DAILY Qty: 30 1RF Discharge Orders: Discharge ED (Routine); Ordered 08/26/22 Ordered By: Bert Powers Referrals: Mingo Lockett MD [Primary Care Provider] - Discharge Diet: Usual diet Discharge Activity: Resume usual activity Patient Instructions: Opioid Safety, Pain Management Activity Restrictions/Additional Instructions: You were seen today for visual disturbance and dizziness. CT of your head showed old stroke you had had but nothing new. Recommend he start taking baby aspirin daily. Follow-up with your primary care doctor within the week. Coding Level of Care Code ED Nozzle Cement Sprayer Helper for Concetta Woodruff
[2022-08-26 08:49] LABS: Basophils # 0.1 10^3/uL (0.0-0.1); Basophils % 0.6 %; Eosinophils # 0.2 10^3/uL (0.0-0.8); Eosinophils % 1.8 %; Lymphocytes # 2.2 10^3/uL (0.8-4.8); Lymphocytes % 23.5 %; Mean Corpuscular HGB Conc 34.1 g/dL (30.0-36.0); Mean Corpuscular Hemoglobin 30.1 pg (28.0-34.0); Mean Corpuscular Volume 88.2 fl (81-99); Mean Platelet Volume 8.3 fL (7.4-10.4); Monocytes # 0.6 10^3/uL (0.2-0.9); Neutrophils # 6.38 10^3/uL (1.8-7.7); Neutrophils % 67.8 %; Nucleated Red Blood Cells % 0 %; Platelet Count 276 10^3/cmm (130-400); Red Blood Count 4.65 10^6/uL (4.1-5.3); Red Cell Distribution Width 12.9 % (12.1-15.1); White Blood Count 9.4 10^3/uL (4.0-10.0)
[2022-08-26 10:40] LABS: Anion Gap 14.3 (5-19); Blood Urea Nitrogen 11 mg/dL (6-20); Calcium 9.7 mg/dL (8.5-10.5); Carbon Dioxide 26 mmol/L (22-29); Chloride 97 mmol/L (98-107); Glomerular Filtration Rate 111.9 mL/min (90-130); Glucose 94 mg/dL (65-115); Osmolality Calculated 275 mOsm/kg (285-295); Potassium 4.3 mmol/L (3.5-5.1); Sodium 133 mmol/L (136-145)
== END 2022-08-26 12:26 | disposition home or self-care (01) ==
PROVIDERS: Emergency Provider Family Medicine; PCP Family Medicine Adult Medicine
DX: H53.9 Unspecified visual disturbance (principal); R42 Dizziness and giddiness; I63.9 Cerebral infarction, unspecified; Z86.73 Personal history of transient ischemic attack (TIA), and cerebral infarction without residual deficits
CPT/HCPCS: 36415; 70450; 80048; 85025; 87040; 93005; 99285

== ENCOUNTER 2023-01-13 16:28 | Emergency (ER) | payer MEDICAID, SELFPAY ==
[2023-01-13 16:32] VITALS: BP 163/108; PULSE 91; RESP 16; TEMP 36.9; O2SAT 96; BMI 38.7
--- NOTE | 2023-01-13 16:41 | XRR_ITS ---
PROCEDURE INFORMATION: Exam: XR Left Foot Exam date and time: 01/13/2023 4:53 PM Age: 37 years old Clinical indication: Pain; Foot; Left TECHNIQUE: Imaging protocol: Radiologic exam of the left foot. Views: 3 or more views. COMPARISON: No relevant prior studies available. FINDINGS: Bones/joints: Normal alignment. Joint surfaces preserved. No fracture. Soft tissues: Normal. XR/XR foot LT min 3V* [id number] IMPRESSION: Normal left foot.
--- NOTE | 2023-01-13 16:47 | W.ED.EXTPRO ---
HPI - Extremity Problem General: Chief complaint: Extremity Injury, Lower Stated complaint: left right foot pain Time Seen by Provider: 01/13/23 16:41 Source: patient History of Present Illness: 37 yo female presents to the emergency room with complaints of left foot swelling and discomfort. This is been going on for some time she does not recall any trauma. She has tried elevating the foot she tried various [id number] remedies without significant improvement. She has not had any fever sweats chills or drainage from the foot no scratches or puncture wounds or lacerations. MD Complaint: joint pain Onset (ago): day(s) Pain Consistency: constant Location: left Quality: aching Radiation: none Relieving factors: nothing Exacerbating factors: nothing Associated symptoms: Deny arthralgias, chest pain, fever(s), myalgias, rash or short of breath Review of Systems Const: Denies: fever(s), chills or fatigue ENMT: Denies: throat pain, ear or mastoid pain, nasal discharge or nasal congestion Card: Denies: chest pain Resp: Denies: dyspnea, productive cough or non-productive cough GI: Denies: abdominal pain, nausea, vomiting, hematemesis, coffee ground emesis, diarrhea, constipation, bloating, hematochezia or melena : Denies: flank pain, difficulty voiding, dysuria, urinary frequency or urinary urgency Skin/Breast: Denies: rash PFSH ED PFSH: Medical History Abdominal pain, chronic, bilateral lower quadrant Adult hypothyroidism Anxiety as acute reaction to exceptional stress Dental abscess Diverticulosis Elevated blood pressure reading External otitis of left ear Folliculitis and perifolliculitis History of CVA (cerebrovascular accident) 2010 History of MRSA infection History of pulmonary embolism Hx of completed stroke History of CVA in [address], last CT unchanged on 08/26/2022 IBS (irritable bowel syndrome) Lumbosacral strain Surgical History History of hemilaminectomy History of tubal ligation Family History Other Stroke Denies family history of Bleeding disorder Social History (Reviewed 01/13/23 @ 17:00 by LISBETH Delgadillo Alcohol intake: never Substance/Drug Use: never Caregiver/support person: No Lives independently: No Household members: children and friend(s) Housing: House Marital status: Single Number of children: 6 Current occupational status: unemployed Do you think of yourself as: Straight/Heterosexual Current gender identity: Female Physical Exam Const: COMMON NORMALS: no acute distress GENERAL APPEARANCE: cooperative and comfortable ORIENTATION/CONSCIOUSNESS: Yes awake, Yes oriented to person, Yes oriented to place and Yes oriented to time HENMT: COMMON NORMALS: normocephalic, atraumatic and hearing grossly normal bilaterally HEAD & SCALP: normocephalic and atraumatic Resp: COMMON NORMALS: normal respiratory effort, No retractions, No use of accessory muscles and clear to auscultation bilaterally AUSCULTATION: clear to auscultation bilaterally Cardio: COMMON NORMALS: regular rate, regular rhythm and No murmurs present (Cardio) RATE: regular rate RHYTHM: regular rhythm GI: COMMON NORMALS: Soft to palpation and No hepatosplenomegaly present AUSCULTATION: Yes normoactive bowel sounds PALPATION: Yes Soft to palpation, No Tenderness to palpation present (GI), No Guarding due to palpation present (GI) and Yes No hepatosplenomegaly present Extremity: COMMON NORMALS: normal to inspection, capillary refill normal, no clubbing, cyanosis or edema, no calf tenderness and no pedal edema Neuro: SENSORIUM/ORIENTATION: Yes oriented to person, Yes oriented to place and Yes oriented to time Skin: COMMON NORMALS: no rashes or lesions noted GENERAL SKIN EXAM: no rashes or lesions noted Course Vital Signs: Vital signs: Vital Signs Temperature 98.4 F 01/13/23 16:32 Pulse Rate 91 01/13/23 17:56 Respiratory Rate 16 01/13/23 16:32 Blood Pressure 163/108 01/13/23 17:56 Pulse Oximetry 96 01/13/23 17:56 Oxygen Delivery Me thod Room Air 01/13/23 16:32 MDM - Extremity (Nontraumatic) Medical Decision Making X-ray of the foot negative. No sign of acute infection or cellulitis at this time. CRP mildly elevated. Discharge home on steroid taper recheck with primary care. If symptoms worsen or change recheck. Medical Records I reviewed the patient's medical records. Lab Data I reviewed the patient's lab results. 01/13/23 17:00 01/13/23 17:00 Radiology Impressions Foot X-Ray 01/13/23 16:41 IMPRESSION: Normal left foot. Laboratory Results WBC 11.1 10^3/uL (4.0-10.0) H 01/13/23 17:00 RBC 4.67 10^6/uL (4.1-5.3) 01/13/23 17:00 Hgb 13.5 g/dL (11.5-15.3) 01/13/23 17:00 Hct 41.5 % (37.0-47.0) 01/13/23 17:00 MCV 88.9 fl (81-99) 01/13/23 17:00 MCH 28.9 pg (28.0-34.0) 01/13/23 17:00 MCHC 32.5 g/dL (30.0-36.0) 01/13/23 17:00 RDW 13.2 % (12.1-15.1) 01/13/23 17:00 Plt Count 291 10^3/cmm (130-400) 01/13/23 17:00 MPV 8.6 fL (7.4-10.4) 01/13/23 17:00 Neut % (Auto) 58.1 % 01/13/23 17:00 Lymph % (Auto) 30.7 % 01/13/23 17:00 [place] % (Auto) 8.3 % 01/13/23 17:00 Eos % (Auto) 2.0 % 01/13/23 17:00 Baso % (Auto) 0.5 % 01/13/23 17:00 Neut # (Auto) 6.46 10^3/uL (1.8-7.7) 01/13/23 17:00 Lymph # (Auto) 3.4 10^3/uL (0.8-4.8) 01/13/23 17:00 [place] # (Auto) 0.9 10^3/uL (0.2-0.9) 01/13/23 17:00 Eos # (Auto) 0.2 10^3/uL (0.0-0.8) 01/13/23 17:00 Baso # (Auto) 0.1 10^3/uL (0.0-0.1) 01/13/23 17:00 Nucleated RBC % (auto) 0 % 01/13/23 17:00 Nucleated RBCs # 0.0 /100WBC 01/13/23 17:00 Sodium 135 mmol/L (136-145) L 01/13/23 17:00 Potassium 4.5 mmol/L (3.5-5.1) 01/13/23 17:00 Chloride 99 mmol/L (98-107) 01/13/23 17:00 Carbon Dioxide 24 mmol/L (22-29) 01/13/23 17:00 Anion Gap 16.5 (5-19) 01/13/23 17:00 BUN 14 mg/dL (6-20) 01/13/23 17:00 Creatinine 0.5 mg/dL (0.5-0.9) 01/13/23 17:00 GFR Calculation 138.1 mL/min (90-130) H 01/13/23 17:00 Glucose 130 mg/dL (65-115) H 01/13/23 17:00 Calculated Osmolality 282 mOsm/kg (285-295) L 01/13/23 17:00 Calcium 9.3 mg/dL (8.5-10.5) 01/13/23 17:00 C-Reactive Protein 23.5 mg/L (0.0-4.9) H 01/13/23 17:00 Discharge Plan Discharge Patient Disposition: Home Clinical Impression: Acute foot pain Condition: Stable Prescriptions: New prednisone 20 mg tablet 20 mg PO TID Qty: 15 0RF Rx Instructions: 1 p.o. 3 times daily x3 days, 1 p.o. twice daily x2 days, 1 p.o. daily x2 days No Action citalopram [Celexa] 20 mg tablet 20 mg PO DAILY Qty: 30 5RF azithromycin 250 mg tablet See Rx Instructions PO .COMPLEX Qty: 6 0RF Rx Instructions: For 250 mg dose pack: take 500 mg today (day 1), then 250 mg for 4 days (days 2-5) PO [id number] 3.5-10,000-1 mg/mL-unit/mL-% drops,suspension 3 drp otic (ear) TID Qty: 10 0RF Rx Instructions: substitution for her formulary for ear infection ok pantoprazole 20 mg tablet,delayed release (DR/EC) 20 mg PO DAILY Qty: 30 1RF aspirin 81 mg tablet,delayed release (DR/EC) 81 mg PO DAILY Qty: 30 0RF Discharge Orders: Discharge ED (Routine); Ordered 01/13/23 Ordered By: Bert Powers Referrals: Mingo Lockett MD [Primary Care Provider] - Discharge Diet: Usual diet Discharge Activity: Increase activity as tolerated Patient Instructions: Opioid Safety, Pain Management Activity Restrictions/Additional Instructions: You are seen today for pain and swelling in the foot. On exam laboratory studies was no sign of infection. There is some mild inflammation in the foot recommend a course of steroids you can take ibuprofen Tylenol and naproxen along with that elevate the leg apply ice if not improving follow-up with podiatry or your primary care doctor. Coding Level of Care Code ED Market Research Intern for Concetta Woodruff
[2023-01-13 17:14] LABS: Basophils # 0.1 10^3/uL (0.0-0.1); Basophils % 0.5 %; Eosinophils # 0.2 10^3/uL (0.0-0.8); Hematocrit 41.5 % (37.0-47.0); Hemoglobin 13.5 g/dL (11.5-15.3); Lymphocytes # 3.4 10^3/uL (0.8-4.8); Lymphocytes % 30.7 %; Mean Corpuscular HGB Conc 32.5 g/dL (30.0-36.0); Mean Corpuscular Hemoglobin 28.9 pg (28.0-34.0); Mean Corpuscular Volume 88.9 fl (81-99); Mean Platelet Volume 8.6 fL (7.4-10.4); Monocytes # 0.9 10^3/uL (0.2-0.9); Monocytes % 8.3 %; Neutrophils # 6.46 10^3/uL (1.8-7.7); Neutrophils % 58.1 %; Nucleated Red Blood Cells % 0 %; Platelet Count 291 10^3/cmm (130-400); Red Blood Count 4.67 10^6/uL (4.1-5.3); Red Cell Distribution Width 13.2 % (12.1-15.1); White Blood Count 11.1 10^3/uL (4.0-10.0)
[2023-01-13 17:33] LABS: Anion Gap 16.5 (5-19); Blood Urea Nitrogen 14 mg/dL (6-20); C Reactive Protein 23.5 mg/L (0.0-4.9); Calcium 9.3 mg/dL (8.5-10.5); Carbon Dioxide 24 mmol/L (22-29); Chloride 99 mmol/L (98-107); Glomerular Filtration Rate 138.1 mL/min (90-130); Glucose 130 mg/dL (65-115); Osmolality Calculated 282 mOsm/kg (285-295); Potassium 4.5 mmol/L (3.5-5.1); Sodium 135 mmol/L (136-145)
[2023-01-13 17:56] VITALS: BP 163/108; PULSE 91; O2SAT 96
== END 2023-01-13 17:57 | disposition home or self-care (01) ==
PROVIDERS: Emergency Provider Family Medicine; PCP Family Medicine Adult Medicine
DX: M79.672 Pain in left foot (principal); Z79.82 Long term (current) use of aspirin; Z86.73 Personal history of transient ischemic attack (TIA), and cerebral infarction without residual deficits
CPT/HCPCS: 36415; 73630; 80048; 85025; 86140; 99284